=== PATIENT | female | born 1945 | race Caucasian/White ===

== ENCOUNTER 2018-07-21 19:57 | Outpatient (REF) | payer MEDICARE, OTHER, SELFPAY | END 2018-07-21 20:17 | LOC: LBN 19:57 | PROVIDERS: PCP Family Medicine | DX: L72.9 Follicular cyst of the skin and subcutaneous tissue, unspecified (principal) | CPT/HCPCS: 87070; 87205 ==

== ENCOUNTER 2021-07-05 01:32 | Outpatient (CLI) | payer MEDICARE, OTHER, SELFPAY ==
[2021-07-05 12:49] LABS: Abs Immature Grans 0.03 10^3/uL (0.0-0.06); Absolute Basophil Count 0.04 10^3/uL (0.0-0.2); Absolute Eosinophil Count 0.04 10^3/uL (0.0-0.7); Absolute Lymphocyte Count 1.17 10^3/uL (1.2-3.4); Absolute Monocyte Count 0.59 10^3/uL (0.1-0.8); Absolute Neutrophil Count 6.23 10^3/uL (1.2-6.7); Basophils % 0.5; Eosinophils % 0.5; HCT 37.8 % (36.0-46.0); HGB 12.9 g/dL (11.2-15.7); Immature Grans % 0.4; Lymphocytes % 14.4; MCH 29.5 pg (27.0-33.0); MCHC 34.1 % (32.0-36.0); MCV 87 fL (80-95); MPV 9.6 fL (8.0-11.0); Monocytes % 7.3; Neutrophils % 76.9; Platelet Count 344 10^3/uL (130-400); RBC 4.37 10^6/uL (3.93-5.22); RDW 11.9 % (11.7-14.6)
[2021-07-05 12:55] LABS: ALT 24 U/L (14-59); AST 17 U/L (15-37); Albumin 4.2 g/dL (3.4-5.0); Alkaline Phosphatase 99 U/L (46-116); BUN 26 mg/dL (7-18); Bilirubin, Total 0.6 mg/dL (0.2-1.0); CREATININE 0.9 mg/dL (0.55-1.02); Calcium 9.9 mg/dL (8.5-10.1); Chloride 89 mmol/L (98-107); Glucose 118 mg/dL (74-106); Potassium 4.6 mmol/L (3.5-5.1); Sodium 126 mmol/L (136-145); TSH (W/Ref FT4) 0.74 uIU/mL (0.36-3.74); Total Protein 7.5 g/dL (6.4-8.2)
[2021-07-08 11:03] LABS: Lyme Ab w Rflx to Lyme Confirm Negative (Negative)
[2021-07-08 23:36] LABS: Anaplasma phagocytophilum Negative (Negative); B. miyamotoi PCR Negative (Negative); Babesia divergens/MO-1 Negative (Negative); Babesia duncani Negative (Negative); Babesia microti Negative (Negative); Ehrlichia chaffeensis Negative (Negative); Ehrlichia ewingii/canis Negative (Negative); Ehrlichia muris eauclairensis Negative (Negative)
== END 2021-07-05 01:33 | disposition home or self-care (01) ==
LOC: LOS 01:32
PROVIDERS: Visit Provider Physician Assistant
DX: R53.83 Other fatigue (principal); E87.1 Hypo-osmolality and hyponatremia; R19.7 Diarrhea, unspecified; Z11.8 Encounter for screening for other infectious and parasitic diseases
CPT/HCPCS: 36415; 80053; 87798; 84443; 85025; 86618

== ENCOUNTER 2021-07-12 02:09 | Outpatient (CLI) | payer MEDICARE, OTHER, SELFPAY ==
[2021-07-12 13:17] LABS: Sodium 130 mmol/L (136-145)
== END 2021-07-12 02:10 | disposition home or self-care (01) ==
LOC: LOS 02:09
PROVIDERS: Visit Provider Nurse Practitioner Family
DX: E87.1 Hypo-osmolality and hyponatremia (principal)
CPT/HCPCS: 36415; 84295

== ENCOUNTER 2021-11-03 21:32 | Observation (INO) | payer MEDICARE, OTHER, SELFPAY ==
[2021-11-03] VITALS (41 sets, daily range): BP systolic 151–193; BP diastolic 68–97; PULSE 64–82; RESP 8–25; TEMP 37.1; O2SAT 91–99
--- NOTE | 2021-11-03 21:15 | DI.CT_ITS ---
Exam(s) CT BRAIN NECK CTA EXAM: CT BRAIN NECK CTA CLINICAL HISTORY: stroke symptoms, right sided weakness. TECHNIQUE: Imaging Protocol: Axial CT angiography was performed with multi-slice acquisition and mu lti-planar and/or 3D reconstructions. CONTRAST MATERIAL: Intravenous: Omnipaque 350 Contrast volume:85 mL. 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 The right subclavian artery arises as the final distal-most branch off of the thoracic arch (instead of rising off of the brachiocephalic trunk). It is seems the right-side bypassing between the poste rior wall of the esophagus and anterior wall of thoracic vertebral body. This leaves the right commo n carotid artery to originate as the 1st independent vessel off the aortic arch. Anterior circulation: Both common carotid arteries ascend with normal luminal diameters. No significant stenosis evident a t the carotid bifurcations and proximal internal carotid arteries. Internal carotid arteries are pat ent in the upper neck and skull base-carotid canals. Posterior circulation: The left vertebral artery originates in conventional fashion off of the left subclavian artery and is dominant, ascending with a luminal diameter of 0.5 millimeters in the foramen transverse area and wi thout evidence of intraluminal thrombus nor dissection and is the main contributor to formation of th e basilar artery. The right vertebral artery is a smaller caliber vessel and originates off of the aberrant right subcl leonardo artery to the right of the midline. The right vertebral artery ascends with a luminal diameter of 2 millimeters and terminates at the skull base as the posterior inferior cerebellar artery. It d oes not contribute to the formation of the basilar artery. CTA Brain W: Anterior circulation: Both internal carotid arteries are patent in the skull base and cavernous sinuses. Supraclinoid aspe cts are patent. A1 segments are patent as are the anterior cerebral arteries and there is no aneurys m at the level of the anterior communicating artery. Middle cerebral arteries appear patent. Posterior circulation: The basilar artery is formed by the dominant left vertebral artery and ascends with a luminal diamete r of 2 millimeters. No significant stenosis in this vessel evident. Distally it gives off superior cerebellar arteries. Above this level it terminates as right posterior XXXX cerebral artery. The le ft posterior cerebral artery is fed by posterior communicating artery on the left side of the [place]. There is a significant stenosis in the P1 segment of the right posterior cerebral artery. Similar finding not seen in the left posterior cerebral artery. There is no aneurysm of the tip of the basilar artery nor elsewhere in the [id number]-Qafhae. CT BRAIN: There is no evidence of intracranial hemorrhage, mass effect, or shift of midline structures. There are no extra-axial fluid collections. Ventricles are not enlarged or shifted. There are no ring enh ancing lesions in the brain and no abnormal meningeal enhancement. IMPRESSION: 1. No evidence of significant stenosis in the carotid arteries in the neck. 2. The left vertebral artery is dominant and forms the basilar artery. The right vertebral artery a rises off of the aberrant right subclavian artery and is a developmentally thinner vessel which termi nates as the right posterior inferior cerebellar artery at the skull base level. It does not contrib martin to the formation of the basilar artery. 3. There is a significant focal stenosis in the P1 segment of the right posterior cerebral artery. The left posterior cerebral artery is predominately formed by posterior communicating artery on the l eft side of the pyfoiz-la-Qhctht. No acute intracranial findings. If clinically indicated follow-up MRI with diffusion imaging can be performed. First read by [facility] RADIATION DOSE DELIVERED: 1,872.73mGy.cm Total DLP DATA REPOSITORY: All CT scans at this facility are submitted to the National Radiology Data Registry (NRDR) Dose Index Registry (DIR) with the [employer] (ACR). RADIATION OPTIMIZATION: All CT scans at this facility use at least one of these dose optimization te chniques: automated exposure control; mA and/or kV adjustment per patient size (includes targeted exa ms where dose is matched to clinical indication); or iterative reconstruction.
--- NOTE | 2021-11-03 21:15 | RT.EKG_ITS ---
APPROVED REPORT Exam: Resting ECG Reason for Exam: cva Patient Location: E HR:74 bpm ECG Measurements Heart Rate 74 AXIS OH 236 P 31 QRSd 118 QRS -19 QT 381 T 74 QTc 424 Conclusion Sinus rhythm...normal P axis, V-rate 60- 99 Prolonged OH interval...OH >220, V-rate 50- 90 Nonspecific intraventricular conduction delay...QRSd >115mS, not LBBB/RBBB Anteroseptal infarct, old...Q >40mS, V1-V2 Nonspecific T abnormalities, lateral leads...T <-0.10mV, I aVL V5 V6
[2021-11-03] MEDS: Omnipaque 350 MG/ML 100 ML BTL IJ (22:01)
[2021-11-03 22:09] LABS: Source Nasal/Nares
[2021-11-03 22:11] LABS: Abs Immature Grans 0.02 10^3/uL (0.0-0.06); Absolute Basophil Count 0.04 10^3/uL (0.0-0.2); Absolute Eosinophil Count 0.13 10^3/uL (0.0-0.7); Absolute Lymphocyte Count 2.15 10^3/uL (1.2-3.4); Absolute Neutrophil Count 4.82 10^3/uL (1.2-6.7); Basophils % 0.5; Eosinophils % 1.7; HGB 11.1 g/dL (11.2-15.7); Immature Grans % 0.3; Lymphocytes % 27.4; MCH 29.9 pg (27.0-33.0); MCHC 33.6 % (32.0-36.0); MCV 89 fL (80-95); MPV 8.7 fL (8.0-11.0); Monocytes % 8.9; Neutrophils % 61.2; Platelet Count 298 10^3/uL (130-400); RBC 3.71 10^6/uL (3.93-5.22); RDW 12.1 % (11.7-14.6); RDW-SD 39.4 fL; WBC 7.86 10^3/uL (4.4-10.8)
--- NOTE | 2021-11-03 22:12 | DI.VRAD_ITS ---
PROCEDURE INFORMATION: Exam: CTA Head With Contrast, Arteriography Exam date and time: 11/03/2021 9:35 PM Age: 76 years old Clinical indication: Stroke-like symptoms; Speech disturbance; Right upper extremity and right lower extremity numbness/paresthesia; Additional info: Stroke symptoms, right side weakness TECHNIQUE: Imaging protocol: Computed tomographic angiography of the head with contrast. Exam focused on the arteries. 3D rendering (Not supervised by radiologist): MIP and/or 3D reconstructed images were created by the technologist. COMPARISON: No relevant prior studies available. FINDINGS: ANTERIOR CIRCULATION: Right internal carotid artery: Unremarkable. Intracranial segment is patent with no significant stenosis. No aneurysm. Right middle cerebral artery: Unremarkable. No occlusion or significant stenosis. No aneurysm. Right anterior cerebral artery: Unremarkable. No occlusion or significant stenosis. No aneurysm. Left internal carotid artery: Unremarkable. Intracranial segment is patent with no significant stenosis. No aneurysm. Left middle cerebral artery: Unremarkable. No occlusion or significant stenosis. No aneurysm. Left anterior cerebral artery: Unremarkable. No occlusion or significant stenosis. No aneurysm. POSTERIOR CIRCULATION: Right vertebral artery: Right vertebral artery ends in PICA. Left vertebral artery: The left vertebral artery continues as the basilar artery. Basilar artery: See Left vertebral artery finding. Right posterior cerebral artery: Mild stenosis of the P1 segment of right posterior cerebral artery. Left posterior cerebral artery: origin of left posterior cerebral artery. Brain: No definite mass, mass effect, or midline shift. Cerebral ventricles: No ventriculomegaly. Bones/joints: Unremarkable. No acute fracture. Soft tissues: Unremarkable. IMPRESSION: No acute abnormality. PROCEDURE INFORMATION: Exam: CTA Neck With Contrast Exam date and time: 11/03/2021 9:35 PM Age: 76 years old Clinical indication: Stroke-like symptoms; Speech disturbance; Right upper extremity and right lower extremity numbness/paresthesia; Additional info: Stroke symptoms, right side weakness TECHNIQUE: Imaging protocol: Computed tomographic angiography of the neck with contrast. 3D rendering (Not supervised by radiologist): MIP and/or 3D reconstructed images were created by the technologist. COMPARISON: No relevant prior studies available. FINDINGS: Right common carotid artery: No stenosis. No dissection or occlusion. Right internal carotid artery: No stenosis of the extracranial segment. No dissection or occlusion. Right external carotid artery: No occlusion or stenosis of the origin. Left common carotid artery: No stenosis. No dissection or occlusion. Left internal carotid artery: No stenosis of the extracranial segment. No dissection or occlusion. Left external carotid artery: No occlusion or stenosis of the origin. Right vertebral artery: No stenosis. No dissection or occlusion. Left vertebral artery: No stenosis. No dissection or occlusion. Right subclavian artery: Aberrant origin of right subclavian artery. Soft tissues: Normal. No significant soft tissue swelling. Bones/joints: No acute fracture. IMPRESSION: No stenosis or occlusion of neck arteries. REFERENCES: NASCET CRITERIA. The degree of stenosis in the cervical segment of the internal carotid artery is based on NASCET criteria. Normal is no stenosis. Mild is less than 50% stenosis. Moderate is 50-69% stenosis. Severe is 70% to 99% stenosis. Total occlusion is no detectable patent lumen. Dictated and Authenticated by: Neftali Yates MD. Ordering:SVETLANA Mane MD
--- NOTE | 2021-11-03 22:12 | ED.GENADUL_ITS ---
Discharge Plan Disposition Patient Disposition: [facility] INPATIENT Condition: Stable Discharge Details Chief Complaint: CVA/TIA Clinical Impression: TIA (transient ischemic attack), COVID Primary Care Provider: Doris Irby ED Provider: Alhaji Montoya Home Meds and New Rx's Prescriptions: No Action cholecalciferol (vitamin D3) 25 mcg (1,000 unit) capsule 25 mcg PO DAILY ascorbic acid (vitamin C) 500 mg tablet 500 mg PO DAILY cetirizine [All Day Allergy (cetirizine)] 10 mg tablet 10 mg PO DAILY Qty: 30 1RF hydrochlorothiazide 25 mg tablet 25 mg PO QAM Qty: 90 3RF Medical Decision Making 76 yo female with hx of htn and hld, no prior cardiac history or cva comes in with chief complaint of right sided weakness. She was feeling well most of the day and went to sit on the bathroom. She then tried to stand up and noticed her right leg was weak and she couldn't lift her arm up as it kept drifting down. she also noted she was having word findings difficulty. This started at 830pm and family called ems. On arrival she is caox4, clear speech, no drift on exam, normal sensation, CN II-XII intact, no facial assymetry. she states her symptoms are better and she doesn't note any weakness now. NIH of 0. Her history is concerning for tia and given symptoms are improving/resolved doubt cva but will proceed with ct and cta, and also obtain cbc, cmp, coagulation studies and troponin/ekg. ct and blood work unremarkable. She remains with nih of 0. Given severity of symptoms at presentation will discuss with hospitalist about admission pt incidentally found to be positive for covid, no oxygen requirements and has no respiratory symptoms. Differential Diagnosis Differential Diagnosis: tia, cva, ich Imaging Data Radiologic Study: Attestation: I personally reviewed and interpreted this imaging study as follows: Imaging: CT Scan Radiologist's impression: negative ct/cta of the head/neck Lab Data Lab results reviewed: Yes I reviewed the patient's lab results. ECG Data Attestation: I personally reviewed and interpreted this ECG (s) as follows: Prior ECG tracings: not available for review Interpretation: sinus rhythm, rate of 74, no acute st t wave ischemic findings HPI General Mode of arrival: EMS . Date/Time Provider Initiated Documentation: 11/03/21 22:11 . Limitations to Documentation: no limitations . Information obtained by: patient . History of Present Illness 76 year old F presents to the emergency department with the chief complaint of right sided weakness, described as moderate, Patient started experiencing this hour(s) (1.5) and it has been now resolved. No relieving factors improve symptom(s), No exacerbating factors reported . Patient did receive the following treatments prior to arrival, none Related Data Home Medications Medication Instructions Recorded Confirmed ascorbic acid (vitamin C) 500 mg 500 mg PO DAILY 06/18/21 11/03/21 tablet cetirizine 10 mg tablet (All Day 10 mg PO DAILY #30 tabs 06/18/21 11/03/21 Allergy (cetirizine)) cholecalciferol (vitamin D3) 25 25 mcg PO DAILY 06/18/21 11/03/21 mcg (1,000 unit) capsule hydrochlorothiazide 25 mg tablet 25 mg PO QAM #90 tabs 10/14/21 11/03/21 Previous Rx's Medication Instructions Recorded cetirizine 10 mg tablet (All Day 10 mg PO DAILY #30 tabs 06/18/21 Allergy (cetirizine)) hydrochlorothiazide 25 mg tablet 25 mg PO QAM #90 tabs 10/14/21 Allergies Allergy/AdvReac Type Severity Reaction Status Date / Time clindamycin Allergy Intermediate GI Upset Verified 07/18/21 08:21 amoxicillin Allergy Itchy palms Verified 07/18/21 08:21 Sulfa (Sulfonamide Allergy Unverified 11/03/21 22:10 Antibiotics) General Stated Complaint: CVA/TIA YANICK: 1 Review of Systems All systems reviewed & are unremarkable except as noted in HPI and below Constitutional Constitutional: Denies chills and Denies fever(s) Cardiovascular Cardiovascular: Denies chest pain and Denies dyspnea Respiratory Respiratory: Denies cough and Denies dyspnea Gastrointestinal Gastrointestinal: Denies abdominal pain, Denies nausea and Denies vomiting Integumentary/Breasts Skin/Breast: Denies rash PFSH All Active Problems (Updated 11/03/21 @ 23:25 by Alhaji Montoya MD) TIA (transient ischemic attack) (Acute) COVID (Acute) Environmental allergies (Acute) Overweight (BMI 25.0-29.9) (Chronic) Hyperlipidemia (Chronic) Essential hypertension (Acute 10/03/10) Medical History Abscess of back Cyst of skin Diarrhea Primary malignant neoplasm of cervix H/O carcinoma in situ Surgical History History of excision of mass History of hysterectomy Social History Smoking/Tobacco Use Status: Never Smoking risk assessment performed?: Yes Alcohol Intake: never Substance use type: does not use Do you feel safe at home: No Do you feel safe in your relationship?: No Exam Const General: no acute distress Orientation: alert HENMT Head: normal to inspection Ears: external ears normal General nose exam: external nose normal Mouth: moist mucous membranes Eyes General: appearance normal, both eyes and all related structures Neck Neck: normal visual inspection Resp Effort & Inspection: normal respiratory effort and able to speak in complete sentences Cardio Rate: regular rate Skin General skin exam: no rashes or lesions noted Neuro General: patient alert and patient oriented x3 Extrem General: normal to inspection Psych Mental Status: mental status grossly normal Course Vital Signs Vital signs: Vital Signs Temperature 37.1 C 11/03/21 21:38 Pulse 76 11/03/21 21:38 Respiratory Rate 18 11/03/21 21:38 Blood Pressure 193/76 H 11/03/21 21:38 Pulse Oximetry 99 11/03/21 21:38 Temperature 37.1 C 11/03/21 21:38 Temperature Source Temporal Artery Scan 11/03/21 21:38 Pulse 76 11/03/21 21:38 Respiratory Rate 18 11/03/21 22:07 Respiratory Effort Non-Labored 11/03/21 22:07 Respiratory Depth Normal 11/03/21 22:07 Respiratory Pattern Normal 11/03/21 22:07 Blood Pressure 193/76 H 11/03/21 21:38 Blood Pressure Position Supine 11/03/21 21:38 Pulse Oximetry 99 11/03/21 21:38 Oxygen Delivery Method Room Air 11/03/21 21:38 Oxygen Flow Rate 0 11/03/21 21:38 Pain Level 0 11/03/21 21:38 Lab/Test Results Lab/Test Results: Laboratory Tests Range/Units 11/03/21 22:00 COVID-19 Source Nasal/Nares
[2021-11-03 22:25] LABS: INR 1.1 (0.9-1.1); Prothrombin Time 10.9 sec (9.3-11.0)
[2021-11-03 22:31] LABS: ALT 15 U/L (14-59); AST 11 U/L (15-37); Albumin 3.7 g/dL (3.4-5.0); Alkaline Phosphatase 91 U/L (46-116); BUN 25 mg/dL (7-18); Bilirubin, Total 0.3 mg/dL (0.2-1.0); Calcium 9.5 mg/dL (8.5-10.1); Chloride 94 mmol/L (98-107); Estimated GFR 57.66 (mL/min/1.73m2); Glucose 126 mg/dL (74-106); Magnesium 1.9 mg/dL (1.8-2.4); Potassium 3.6 mmol/L (3.5-5.1); Sodium 130 mmol/L (136-145); Total Protein 7.3 g/dL (6.4-8.2); Troponin I < 50 ng/L (<or=60)
[2021-11-03 22:50] LABS: Bilirubin Negative (Negative); Blood Trace-lysed (Negative); Clarity Clear (Clear); Glucose Negative (Negative); Ketones Negative (Negative); Leukocyte Esterase Small (Negative); Nitrite Negative (Negative); Specific Gravity 1.015 (1.005-1.025); Urobilinogen 0.2 EU/dL (Up TO 0.2)
[2021-11-03 22:56] LABS: COVID-19 PCR POSITIVE (Negative)
[2021-11-03 23:07] LABS: Bacteria Few HPF (Negative); C & S Indicated? Yes; Casts Negative LPF (Negative); Crystals Negative HPF (Negative); Epithelial Cells Rare HPF (Negative); Mucus Negative (Negative)
[2021-11-03] MEDS: Aspirin 325 MG TAB PO (23:27)
--- NOTE | 2021-11-03 23:47 | W.PM.HP.N ---
Date of service: 11/03/21 Time of Service: 23:47 Assessment and Plan Assessment and plan (1) TIA (transient ischemic attack): Status: Acute Assessment and plan: TIA. No arrythmia to suggest cardioembolic source, and gradual onset and recovery more suggestive of atherothrombotic etiology. Conceivable that COVID hypercoaguable diathesis playing a role but this is probably unknowable. In any case would advise continue ASA, begin statin and check MRI in AM. Will allow a degree of permissive hypertension, targeting roughly 160/90 for now. History of Present Illness History of Present Illness Chief Complaint: right sided weakness Narrative: 76 female with h/o HTN and HLD -- here with fairly sudden onset right sided weakness approx 3 hours ago, as well as either some slurring of speech or difficulty in word finding, cannot quite distinguish the two instances, Slowly progressed and then slowly resolved -- at this point is back to baseline. In ER findings of note for normal exam and negative head/neck CT and CTA, along with negative telemetry. Received 325 ASA during my visit. COVID is positive. I was asked to evaluate for admission. At this point patient states she feels entirely well. Review of Systems Narrative: per HPI PFSH All Active Problems TIA (transient ischemic attack) (Acute) COVID (Acute) Environmental allergies (Acute) Overweight (BMI 25.0-29.9) (Chronic) Hyperlipidemia (Chronic) Essential hypertension (Acute 10/03/10) Medical History Abscess of back Cyst of skin Diarrhea Primary malignant neoplasm of cervix H/O carcinoma in situ Surgical History History of excision of mass History of hysterectomy Social History Smoking/Tobacco Use Status: Never Smoking risk assessment performed?: Yes Alcohol Intake: never Substance use type: does not use Do you feel safe at home: No Do you feel safe in your relationship?: No Meds Allergies and Home Medications Allergies Allergy/AdvReac Type Severity Reaction Status Date / Time clindamycin Allergy Intermediate GI Upset Verified 07/18/21 08:21 amoxicillin Allergy Itchy palms Verified 07/18/21 08:21 Sulfa (Sulfonamide Allergy Unverified 11/03/21 22:10 Antibiotics) Home Medications Medication Instructions Recorded Confirmed Type ascorbic acid (vitamin C) 500 mg 500 mg PO DAILY 06/18/21 11/03/21 History tablet cetirizine 10 mg tablet (All Day 10 mg PO DAILY #30 tabs 06/18/21 11/03/21 Rx Allergy (cetirizine)) cholecalciferol (vitamin D3) 25 25 mcg PO DAILY 06/18/21 11/03/21 History mcg (1,000 unit) capsule hydrochlorothiazide 25 mg tablet 25 mg PO QAM #90 tabs 10/14/21 11/03/21 Rx Exam Narrative Exam Narrative: BP 147-193/74-76, 76, 37.1,18, 99% RA. HEENT atraumatic; neck supple w/o bruit; lungs clear; heart RRR; abdomen soft and NT; extremities w/o edema; neuro Ox3, lucid, no aphasia, motor 5/5, toes downgoing Results Labs Result diagrams: 11/03/21 22:05 11/03/21 22:05 Labs: Laboratory Results - last 24 hr 11/03/21 11/03/21 11/03/21 22:00 22:05 22:05 WBC 7.86 RBC 3.71 L Hgb 11.1 L Hct 33.0 L MCV 89 MCH 29.9 MCHC 33.6 RDW 12.1 Plt Count 298 MPV 8.7 Immature Gran % 0.3 Neutrophils % 61.2 Lymphocytes % 27.4 Monocytes % 8.9 Eosinophils % 1.7 Basophils % 0.5 Nucleated RBC % 0.0 Absolute Neutrophils 4.82 Absolute Lymphocytes 2.15 Absolute Monocytes 0.70 Absolute Eosinophils 0.13 Absolute Basophils 0.04 PT INR APTT Sodium 130 L Potassium 3.6 Chloride 94 L Carbon Dioxide 30.0 Anion Gap 6.0 BUN 25 H Creatinine 1.0 Est GFR (CKD-EPI 2020) 57.66 Glucose 126 H Calcium 9.5 Magnesium 1.9 Total Bilirubin 0.3 AST 11 L ALT 15 Alkaline Phosphatase 91 Troponin I < 50 Total Protein 7.3 Albumin 3.7 Urine Color Urine Clarity Urine pH Ur Specific [place] Urine Protein Urine Ketones Urine Blood Urine Nitrite Urine Bilirubin Urine Urobilinogen Ur Leukocyte Esterase Urine RBC Urine WBC Ur Epithelial Cells Urine Crystals Urine Bacteria Urine Casts Urine Mucus Ur Culture Indicated? Urine Glucose COVID-19 Source Nasal/Nares SARS-CoV-2 (PCR) POSITIVE A* 11/03/21 11/03/21 22:05 22:40 WBC RBC Hgb Hct MCV MCH MCHC RDW Plt Count MPV Immature Gran % Neutrophils % Lymphocytes % Monocytes % Eosinophils % Basophils % Nucleated RBC % Absolute Neutrophils Absolute Lymphocytes Absolute Monocytes Absolute Eosinophils Absolute Basophils PT 10.9 INR 1.1 APTT 25.0 Sodium Potassium Chloride Carbon Dioxide Anion Gap BUN Creatinine Est GFR (CKD-EPI 2020) Glucose Calcium Magnesium Total Bilirubin AST ALT Alkaline Phosphatase Troponin I Total Protein Albumin Urine Color Yellow Urine Clarity Clear Urine pH 7.0 Ur Specific [place] 1.015 Urine Protein Negative Urine Ketones Negative Urine Blood Trace-lysed H Urine Nitrite Negative Urine Bilirubin Negative Urine Urobilinogen 0.2 Ur Leukocyte Esterase Small H Urine RBC 3-5 H Urine WBC 5-10 Ur Epithelial Cells Rare Urine Crystals Negative Urine Bacteria Few Urine Casts Negative Urine Mucus Negative Ur Culture Indicated? Yes Urine Glucose Negative COVID-19 Source SARS-CoV-2 (PCR) Last Vital Signs Temp 37.1 C 11/03/21 21:38 Pulse 76 11/03/21 21:38 Resp 18 11/03/21 22:07 BP 193/76 H 11/03/21 21:38 Pulse Ox 99 11/03/21 21:38
[2021-11-04] VITALS (48 sets, daily range): BP systolic 146–161; BP diastolic 60–82; PULSE 57–71; RESP 9–25; TEMP 36.4–36.9; O2SAT 94–99
--- NOTE | 2021-11-04 | DI.MRI_ITS ---
Exam(s) MR BRAIN WO EXAM: MR BRAIN WO CLINICAL HISTORY: TIA, right hemiparesis TECHNIQUE: Multiplanar multisequence MRI of the brain was performed. COMPARISON: CT CT BRAIN NECK CTA from 11/03/2021 FINDINGS: CEREBRAL PARENCHYMA: There is no evidence of intracranial hemorrhage, mass effect, or shift of midline structures. There are no extra-axial fluid collections. Ventricles are not enlarged or shifted. There is no significant focal signal abnormality in the cerebellar hemispheres nor within the branden, m idbrain, and thalami. There is no prominent abnormal signal in the immediate periventricular white matter. There is, howev er, a small 5 x 5 millimeter focus of signal abnormality in the left anterior lobe white matter force ps, nonhemorrhagic and not exhibiting restricted diffusion on DWI. There is no significant focal signal abnormality evident on diffusion imaging to suggest acute ischem ic event. SWI: No evidence of microhemorrhages PITUITARY GLAND: No mass nor parasellar abnormality. No obvious abnormality in the cavernous sinuses. FLOW VOIDS: The expected flow void are noted. No evidence of obvious aneurysm nor obvious vascular ma lformation. See CT a report PARANASAL SINUSES: The visualized paranasal sinuses appear unremarkable. No obvious finding ORBITS: No obvious findings. IMPRESSION: Mild periventricular white matter foci of signal abnormality, the largest of these measuring 5 millim eters and located in the your lobe white matter forceps. This does not exhibit restricted diffusion to suggest that is an acute lacunar infarct. No evidence of hemorrhage at this level nor elsewhere i n the brain. DATA REPOSITORY:
[2021-11-04 00:44] LABS: Troponin I < 50 ng/L (<or=60)
[2021-11-04] MEDS: Normal Saline Flush 10 ML SYR IVP (02:23)
[2021-11-04 05:53] LABS: HCT 32.6 % (36.0-46.0); HGB 11.4 g/dL (11.2-15.7)
[2021-11-04] MEDS: Aspirin 81 MG CHEW PO (09:19)
[2021-11-04] MEDS: Cetirizine 10 MG TAB PO (09:19)
[2021-11-04] MEDS: Atorvastatin 20 MG TAB PO (09:19)
[2021-11-04] MEDS: hydroCHLOROthiazide 25 MG TAB PO (09:19)
[2021-11-04] MEDS: LORazepam 1 MG TAB 0.5 MG PO (10:49)
--- NOTE | 2021-11-04 14:21 | DSE_ITS ---
Date of service: 11/04/21 Time of Service: 14:21 DS: Diagnosis Discharge Diagnosis (1) TIA (transient ischemic attack): Status: Acute Discharge Plan Disposition Patient Disposition: HOME Condition: Good Discharge Details Reason For Visit: TIA Admit Date/Time: 11/03/21 23:58 Admit Provider: Ernesto Marin Attending Provider: Ernesto Marin Primary Care Provider: Doris Irby Hospital Course Hospital Course: 76 female with h/o HTN and HLD -- here with fairly sudden onset right sided weakness approx 3 hours prior to arrival. She also endorsed either some slurring of speech or difficulty in word finding; she could not quite distinguish which/or both. Slowly progressed and then slowly resolved. In ER findings of note for normal exam and negative head/neck CT and CTA, along with negative telemetry. Received 325. COVID was incidentally positive. An MRI brain showed: Mild periventricular white matter foci of signal abnormality, the largest of these measuring 5 x 5 mm in the left anterior lobe white matter.? This does not exhibit restricted diffusion to suggest that is an acute lacunar infarct.? No evidence of hemorrhage at this level nor elsewhere in the brain. She continued to show no motor deficits, speech or swallowing deficits, paresthesias. She will continue a daily aspirin and atorvastatin 40mg daily. PCP follow up in 1-2 weeks. Home Meds and New Rx's Prescriptions: New aspirin [Children's Aspirin] 81 mg Tablet,Chewable 81 mg PO DAILY Qty: 0 0RF atorvastatin 40 mg tablet 40 mg PO DAILY Qty: 30 0RF Continued cholecalciferol (vitamin D3) 25 mcg (1,000 unit) capsule 25 mcg PO DAILY ascorbic acid (vitamin C) 500 mg tablet 500 mg PO DAILY cetirizine [All Day Allergy (cetirizine)] 10 mg tablet 10 mg PO DAILY Qty: 30 1RF hydrochlorothiazide 25 mg tablet 25 mg PO QAM Qty: 90 3RF Discharge Instructions Instructions: Transient Ischemic Attack (DC) Activity:: Activity as Tolerated Equipment/Supplies:: No Equipment Needed Diet:: Heart Healthy Discharge Orders Discharge Orders: Discharge Order (Routine); Ordered 11/04/21 Ordered By: Guero Pretty DS: Summary Time Spent with Patient providing and/or coordinating discharge services: Greater than 30 minutes Status at Discharge Functional status at discharge: independent ambulation Overall status at discharge: patient is back to baseline Mental Status: mental status grossly normal Speech and Movement: speech and movement normal Mood: congruent mood Affect: normal affect Exam Const General: cooperative and no acute distress Nutritional Appearance: overweight Orientation: alert and oriented x3 Eyes General: appearance normal, both eyes and all related structures Sclera: sclerae normal Resp Effort & Inspection: normal respiratory effort Auscultation: clear to auscultation bilaterally Cardio Rate: regular rate Rhythm: regular rhythm Heart Sounds: S1 normal and S2 normal GI Palpation: soft and nontender Auscultation: normal bowel sounds Skin General skin exam: no rashes or lesions noted Neuro General: no focal motor deficits Cranial Nerves: facial strength normal Cognition: normal cognition Speech: speech normal Extrem General: no pedal edema and no calf tenderness Psych Mental Status: mental status grossly normal Speech and Movement: speech and movement normal Mood: congruent mood Affect: normal affect DS: Data Vitals/I&O Vitals and I&O: Vital Signs Temperature 36.4 C L 11/04/21 05:27 Temperature Source Temporal Artery Scan 11/04/21 05:27 Pulse 63 11/04/21 12:11 Pulse Rhythm Regular 11/04/21 10:00 Pulse 64 11/04/21 12:11 Respiratory Rate 11 L 11/04/21 12:11 Respiratory Effort Non-Labored 11/04/21 10:00 Respiratory Depth Normal 11/04/21 10:00 Respiratory Pattern Normal 11/04/21 10:00 Blood Pressure 161/73 H 11/04/21 12:11 Blood Pressure Mean 94 11/04/21 12:11 Blood Pressure Position Sitting 11/04/21 00:50 Pulse Oximetry 99 11/04/21 12:11 Oxygen Delivery Method Room Air 11/04/21 00:50 Oxygen Flow Rate 0 11/04/21 00:50 Pain Level 0 11/04/21 05:27 Intake & Output 11/03/21 11/04/21 11/04/21 23:59 11:59 23:59 Intake Total 560 / 560 Output Total 500 / 500 Balance 60 / 60 Weight 77.7 kg 77.7 kg Intake: Oral 560 / 560 Output: Urine 500 / 500 Other: Urine Color Yellow Urine Appearance Clear Urine Odor None Comment s/p hysterectomy Stool Size Small Stool Characteristics Formed Hard Voiding Methods Bedside Commode Data Completed and Pending Labs on day of discharge: Labs from last 24 hours 11/04/21 11/04/21 11/03/21 05:17 00:20 22:40 WBC RBC Hgb 11.4 Hct 32.6 L MCV MCH MCHC RDW Plt Count MPV Immature Gran % Neutrophils % Lymphocytes % Monocytes % Eosinophils % Basophils % Nucleated RBC % Absolute Neutrophils Absolute Lymphocytes Absolute Monocytes Absolute Eosinophils Absolute Basophils PT INR APTT Sodium Potassium Chloride Carbon Dioxide Anion Gap BUN Creatinine Est GFR (CKD-EPI 2020) Glucose Calcium Magnesium Total Bilirubin AST ALT Alkaline Phosphatase Troponin I < 50 Total Protein Albumin Urine Color Yellow Urine Clarity Clear Urine pH 7.0 Ur Specific [place] 1.015 Urine Protein Negative Urine Ketones Negative Urine Blood Trace-lysed H Urine Nitrite Negative Urine Bilirubin Negative Urine Urobilinogen 0.2 Ur Leukocyte Esterase Small H Urine RBC 3-5 H Urine WBC 5-10 Ur Epithelial Cells Rare Urine Crystals Negative Urine Bacteria Few Urine Casts Negative Urine Mucus Negative Ur Culture Indicated? Yes Urine Glucose Negative COVID-19 Source SARS-CoV-2 (PCR) 11/03/21 11/03/21 11/03/21 22:05 22:05 22:05 WBC 7.86 RBC 3.71 L Hgb 11.1 L Hct 33.0 L MCV 89 MCH 29.9 MCHC 33.6 RDW 12.1 Plt Count 298 MPV 8.7 Immature Gran % 0.3 Neutrophils % 61.2 Lymphocytes % 27.4 Monocytes % 8.9 Eosinophils % 1.7 Basophils % 0.5 Nucleated RBC % 0.0 Absolute Neutrophils 4.82 Absolute Lymphocytes 2.15 Absolute Monocytes 0.70 Absolute Eosinophils 0.13 Absolute Basophils 0.04 PT 10.9 INR 1.1 APTT 25.0 Sodium 130 L Potassium 3.6 Chloride 94 L Carbon Dioxide 30.0 Anion Gap 6.0 BUN 25 H Creatinine 1.0 Est GFR (CKD-EPI 2020) 57.66 Glucose 126 H Calcium 9.5 Magnesium 1.9 Total Bilirubin 0.3 AST 11 L ALT 15 Alkaline Phosphatase 91 Troponin I < 50 Total Protein 7.3 Albumin 3.7 Urine Color Urine Clarity Urine pH Ur Specific [place] Urine Protein Urine Ketones Urine Blood Urine Nitrite Urine Bilirubin Urine Urobilinogen Ur Leukocyte Esterase Urine RBC Urine WBC Ur Epithelial Cells Urine Crystals Urine Bacteria Urine Casts Urine Mucus Ur Culture Indicated? Urine Glucose COVID-19 Source SARS-CoV-2 (PCR) 11/03/21 22:00 WBC RBC Hgb Hct MCV MCH MCHC RDW Plt Count MPV Immature Gran % Neutrophils % Lymphocytes % Monocytes % Eosinophils % Basophils % Nucleated RBC % Absolute Neutrophils Absolute Lymphocytes Absolute Monocytes Absolute Eosinophils Absolute Basophils PT INR APTT Sodium Potassium Chloride Carbon Dioxide Anion Gap BUN Creatinine Est GFR (CKD-EPI 2020) Glucose Calcium Magnesium Total Bilirubin AST ALT Alkaline Phosphatase Troponin I Total Protein Albumin Urine Color Urine Clarity Urine pH Ur Specific [place] Urine Protein Urine Ketones Urine Blood Urine Nitrite Urine Bilirubin Urine Urobilinogen Ur Leukocyte Esterase Urine RBC Urine WBC Ur Epithelial Cells Urine Crystals Urine Bacteria Urine Casts Urine Mucus Ur Culture Indicated? 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
== END 2021-11-04 16:30 | disposition home or self-care (01) ==
LOC: ER 11-04 00:18 → ICU 11-04 00:43
PROVIDERS: Admitting Provider General Practice; Emergency Provider Emergency Medicine; Visit Provider General Practice
DX: G45.9 Transient cerebral ischemic attack, unspecified (principal); I10 Essential (primary) hypertension; E78.5 Hyperlipidemia, unspecified; R47.81 Slurred speech; G81.91 Hemiplegia, unspecified affecting right dominant side; U07.1 COVID-19; Z79.899 Other long term (current) drug therapy; R94.31 Abnormal electrocardiogram [ECG] [EKG]; E66.3 Overweight; Z68.29 Body mass index [BMI] 29.0-29.9, adult
CPT/HCPCS: 36415; 70496; 70498; 80053; 87635; 93005; 96374; 99284; 99285; Q0222; 70551; 81003; 81015; 83735; 84484; 85014; 85018; 85025; 85610; 85730; 87086; 93010; 99217; 99219; G0378; J3490

== ENCOUNTER 2021-11-11 18:09 | Outpatient (REF) | payer MEDICARE, OTHER, SELFPAY ==
[2021-11-11 13:05] LABS: Bilirubin Negative (Negative); Blood Trace-intact (Negative); Clarity Clear (Clear); Glucose Negative (Negative); Ketones Negative (Negative); Leukocyte Esterase Negative (Negative); Nitrite Negative (Negative); Specific Gravity 1.015 (1.005-1.025)
[2021-11-11 13:10] LABS: Bacteria Negative HPF (Negative); C & S Indicated? No; Casts Negative LPF (Negative); Crystals Negative HPF (Negative); Epithelial Cells Negative HPF (Negative); Mucus Negative (Negative); WBC 0-2 HPF (0-5)
== END 2021-11-11 18:10 | disposition home or self-care (01) ==
LOC: LBN 18:09
PROVIDERS: Visit Provider Nurse Practitioner Family
DX: N39.0 Urinary tract infection, site not specified (principal)
CPT/HCPCS: 81003; 81015

== ENCOUNTER 2021-11-13 03:33 | Outpatient (CLI) | payer MEDICARE, OTHER, SELFPAY ==
[2021-11-13 12:47] LABS: ALT 21 U/L (14-59); AST 15 U/L (15-37); Albumin 4.1 g/dL (3.4-5.0); Alkaline Phosphatase 91 U/L (46-116); BUN 17 mg/dL (7-18); Bilirubin, Total 0.7 mg/dL (0.2-1.0); CREATININE 0.8 mg/dL (0.55-1.02); Calcium 10.2 mg/dL (8.5-10.1); Calculated LDL 75 mg/dL (<100); Chloride 88 mmol/L (98-107); Cholesterol 163 mg/dL (<200); Estimated GFR 75.37 (mL/min/1.73m2); Glucose 116 mg/dL (74-106); HDL Cholesterol 79 mg/dL (40-60); Potassium 4.2 mmol/L (3.5-5.1); Total Protein 7.8 g/dL (6.4-8.2); Triglyceride 46 mg/dL (<150)
[2021-11-13 12:56] LABS: Sodium 123 mmol/L (136-145)
[2021-11-13 12:58] LABS: Hemoglobin A1C 6.1 % (<5.7)
== END 2021-11-13 03:34 | disposition home or self-care (01) ==
LOC: LOS 03:33
DX: I10 Essential (primary) hypertension (principal); R73.01 Impaired fasting glucose
CPT/HCPCS: 36415; 80053; 80061; 83036

== ENCOUNTER 2021-11-18 02:39 | Outpatient (CLI) | payer MEDICARE, OTHER, SELFPAY ==
[2021-11-18 12:34] LABS: Anion Gap 5.3 mmol/L (3-11); CO2 31.7 mmol/L (21.0-32.0); Chloride 96 mmol/L (98-107); Potassium 4.7 mmol/L (3.5-5.1); Sodium 133 mmol/L (136-145)
== END 2021-11-18 02:40 | disposition home or self-care (01) ==
LOC: LOS 02:39
PROVIDERS: Visit Provider Family Medicine
DX: E87.1 Hypo-osmolality and hyponatremia (principal)
CPT/HCPCS: 36415; 80051; 84132

== ENCOUNTER 2021-12-03 02:57 | Outpatient (CLI) | payer MEDICARE, OTHER, SELFPAY ==
[2021-12-03 12:48] LABS: Anion Gap 5.6 mmol/L (3-11); BUN 24 mg/dL (7-18); CO2 31.4 mmol/L (21.0-32.0); CREATININE 0.9 mg/dL (0.55-1.02); Calcium 10.4 mg/dL (8.5-10.1); Chloride 100 mmol/L (98-107); Estimated GFR 65.44 (mL/min/1.73m2); Glucose 117 mg/dL (74-106); Potassium 4.1 mmol/L (3.5-5.1); Sodium 137 mmol/L (136-145)
== END 2021-12-03 02:58 | disposition home or self-care (01) ==
LOC: LOS 02:57
PROVIDERS: Visit Provider Nurse Practitioner Family
DX: E87.1 Hypo-osmolality and hyponatremia (principal)
CPT/HCPCS: 36415; 80048

== ENCOUNTER 2022-01-15 02:40 | Outpatient (CLI) | payer MEDICARE, OTHER, SELFPAY ==
[2022-01-15 12:26] LABS: Anion Gap 3.2 mmol/L (3-11); BUN 26 mg/dL (7-18); CO2 31.8 mmol/L (21.0-32.0); Calcium 10.5 mg/dL (8.5-10.1); Chloride 102 mmol/L (98-107); Estimated GFR 57.66 (mL/min/1.73m2); Glucose 109 mg/dL (74-106); Potassium 4.3 mmol/L (3.5-5.1); Sodium 137 mmol/L (136-145)
== END 2022-01-15 02:41 | disposition home or self-care (01) ==
LOC: LOS 02:40
PROVIDERS: PCP Nurse Practitioner Family; Visit Provider Nurse Practitioner Family
DX: E87.1 Hypo-osmolality and hyponatremia (principal)
CPT/HCPCS: 36415; 80048

== ENCOUNTER 2022-04-03 01:57 | Outpatient (CLI) | payer MEDICARE, SELFPAY ==
[2022-04-03 12:34] LABS: Anion Gap 7.4 mmol/L (3-11); BUN 24 mg/dL (7-18); CO2 27.6 mmol/L (21.0-32.0); Calcium 10.3 mg/dL (8.5-10.1); Chloride 101 mmol/L (98-107); Estimated GFR 57.31 (mL/min/1.73m2); Glucose 111 mg/dL (74-106); Potassium 4.3 mmol/L (3.5-5.1); Sodium 136 mmol/L (136-145)
== END 2022-04-03 01:58 | disposition home or self-care (01) ==
LOC: LOS 01:57
PROVIDERS: PCP Nurse Practitioner Family; Visit Provider Nurse Practitioner Family
DX: I10 Essential (primary) hypertension (principal)
CPT/HCPCS: 36415; 80048

== ENCOUNTER → 2023-01-30 00:53 | Outpatient (CLI) | payer MEDICARE, SELFPAY ==
--- NOTE | 2023-01-30 10:15 | DI.US_ITS ---
Exam(s) US BREAST RT COMPLETE MG MAMMO DIAGNOSTIC BI EXAM: MG MAMMO DIAGNOSTIC BI AND COMPLETE RIGHT BREAST ULTRASOUND CLINICAL HISTORY: 2.5 cm 12:00 1 cm above areola new tender mass, N63.10. TECHNIQUE: BOTH CC MLO mammographic images OF BOTH BREAST were obtained with 3D tomosynthesis techni que and utilizing computer aided detection (CAD). Also performed additional spot compression view of the right breast. Complete right breast ultrasound was performed including all 4 quadrants as well as the axillary billy on. COMPARISON: Last mammogram was 2000 not available. This patient feels a right breast lump. FINDINGS: DIAGNOSTIC BILATERAL MAMMOGRAM: There is an ominous suspicious mass at 12 o'clock position of the right breast measuring approximatel y 5 x 4 cm, spiculated and highly suspicious for malignancy. There are no malignant-appearing microc alcifications in this region there are bilateral benign at micro and macro calcifications in both dee asts. No suspicious masses evident in the opposite-left breast. COMPLETE RIGHT BREAST ULTRASOUND: There is a malignant-appearing hypoechoic mass at 12 o'clock position which corresponds to the spicul ated mass on the mammogram. Highly suspicious for malignancy. No other similar appearing masses in the other quadrants. Scanning of the right axilla does not reveal abnormally enlarged lymph nodes. IMPRESSION: 1. There is a spiculated mass at 12 o'clock position of the right breast which is highly suspicious f or malignancy. This is evident on both mammogram and ultrasound. Biopsy recommended 2. No significant findings in the opposite-left breast. The patient was informed of the findings and follow-up recommendations by myself prior to leaving the department today. I also called the patient's provider with this report. BI-RADS Category 5 - Highly Suggestive of Malignancy: Biopsy recommended Breast Density - Category B - Scattered areas of fibroglandular density Breast density Category C or D implies that the patient has dense breast tissue. Dense breast tissue can make it harder to find cancer on a mammogram. Dense breast tissue is also associated with an incr eased risk of breast cancer. This information about the result of the mammogram report was provided to the patient to raise their awareness. Use this report when you speak with the patient about their risks for breast cancer, which includes their family history. At that time, you may recommend additional screening tests (Ultrasoun d or MRI) as these tests may add significant information. A negative radiographic report should not delay biopsy if a dominant or clinically suspicious mass is present. Up to ten percent of cancers are not identified on mammography. A negative report may reinforce clinical impression. Adenosis and dense breasts may obscure an underlying neoplasm. False positive reports average 6 to 10%. Patient will receive a letter notifying them of these results.
== END ==
PROVIDERS: PCP Nurse Practitioner Family; Visit Provider Nurse Practitioner Family
DX: N63.12 Unspecified lump in the right breast, upper inner quadrant
CPT/HCPCS: 76642; 77062; 77066; G0279

== ENCOUNTER → 2023-02-04 12:53 | Outpatient (BNVA) | payer MEDICARE, SELFPAY | PROVIDERS: PCP Nurse Practitioner Family; Referring Provider Nurse Practitioner Family; Visit Provider Surgery | DX: N63.12 Unspecified lump in the right breast, upper inner quadrant (principal) | CPT/HCPCS: 99214 ==

== ENCOUNTER 2023-02-09 13:31 | Outpatient (REF) | payer MEDICARE, SELFPAY ==
--- NOTE | 2023-02-09 13:30 | BREAST_PTH ---
PATIENT: Maryan Cruz LOC: [facility] U#:[id number] AGE/SX: 77/F ROOM: RE02/09/[address]: Fernie Benitez MD : 1945 BED: DIS: 02/09/2023 SPEC #: [id number] RECD: 02/09/23 18:14 STATUS: NAN REQ #: [id number] ANDREW: 02/09/23 13:[address]: Fernie Benitez DEPT: Surgical Specimen RECD BY: Ashley Martin ENTERED: 02/09/23 18:15 SP TYPE: Breast OTHR DR: Heladio Lowery DNP Tissues: 1 - BREAST BX NEEDLE Procedures: GROSS AND MICRO LEVEL 4 [id number] IPEX ESTROGEN/PROGESTERONE RECEPTOR IPEX STAIN Comments: [id number]
== END 2023-02-09 13:32 | disposition home or self-care (01) ==
LOC: LBN 13:31
PROVIDERS: PCP Nurse Practitioner Family; Visit Provider Surgery
DX: C50.911 Malignant neoplasm of unspecified site of right female breast (principal); Z17.0 Estrogen receptor positive status [ER+]
CPT/HCPCS: 88305; 88360

== ENCOUNTER 2023-03-06 04:34 | Outpatient (CLI) | payer MEDICARE, SELFPAY ==
[2023-03-06 13:18] LABS: ALT 24 U/L (14-59); AST 13 U/L (15-37); Albumin 3.8 g/dL (3.4-5.0); Alkaline Phosphatase 93 U/L (46-116); Anion Gap 7.7 mmol/L (3-11); BUN 30 mg/dL (7-18); Bilirubin, Total 0.6 mg/dL (0.2-1.0); CO2 26.3 mmol/L (21.0-32.0); CREATININE 0.9 mg/dL (0.55-1.02); Calcium 10.1 mg/dL (8.5-10.1); Calculated LDL 90 mg/dL (<100); Chloride 103 mmol/L (98-107); Cholesterol 197 mg/dL (<200); Estimated GFR 64.63 (mL/min/1.73m2); Glucose 114 mg/dL (74-106); HDL Cholesterol 100 mg/dL (40-60); Potassium 4.6 mmol/L (3.5-5.1); Sodium 137 mmol/L (136-145); Total Protein 7.7 g/dL (6.4-8.2); Triglyceride 39 mg/dL (<150)
== END 2023-03-06 04:35 | disposition home or self-care (01) ==
LOC: LOS 04:34
PROVIDERS: PCP Nurse Practitioner Family; Visit Provider Nurse Practitioner Family
DX: E78.5 Hyperlipidemia, unspecified (principal); R73.03 Prediabetes
CPT/HCPCS: 36415; 80053; 80061; 83036

== ENCOUNTER 2023-04-14 19:38 | Emergency (ER) | payer MEDICARE, SELFPAY ==
--- NOTE | 2023-04-14 19:46 | ED.GENADUL_ITS ---
Discharge Plan Disposition Patient Disposition: Home Condition: Improving Discharge Details Clinical Impression: Contusion of face, Head injury, Sprain of cervical neck, Breast cancer, Abrasion of face Primary Care Provider: Heladio Mcnamara ED Provider: Dori Morrison Home Meds and New Rx's Prescriptions: No Action cholecalciferol (vitamin D3) 25 mcg (1,000 unit) capsule 25 mcg PO DAILY ascorbic acid (vitamin C) 500 mg tablet 500 mg PO DAILY cetirizine [All Day Allergy (cetirizine)] 10 mg tablet 10 mg PO DAILY PRN gabapentin 300 mg capsule 300 mg PO DAILY atorvastatin 20 mg tablet 20 mg PO DAILY Qty: 90 3RF lisinopril 20 mg tablet 20 mg PO DAILY Qty: 90 3RF amlodipine 10 mg tablet 10 mg PO DAILY Qty: 90 3RF aspirin [Children's Aspirin] 81 mg Tablet,Chewable 81 mg PO DAILY Qty: 0 0RF Discharge Instructions Instructions: Head Injury (ED), Contusion in Adults (ED), Abrasion (ED) Additional Instructions: Wake every 4 hours for the next 24 hours and return here for any new or worrisome symptoms such as confusion, vomiting, blurry vision or any new symptoms such as chest pain or shortness of breath or any other concerns. Discharge Data Discharge Date/Time-TO BE ENTERED AT DEPARTURE: 04/14/23 22:56 Discharge Physician: Dori Morrison [facility] General Mode of arrival: ambulatory . Date/Time Provider Initiated Documentation: 04/14/23 19:46 . Limitations to Documentation: no limitations . Information obtained by: patient . HPI Narrative: Time seen was 1945. The patient is a 78-year-old female recently diagnosed with breast cancer who underwent a right lumpectomy. She tells me that she was wearing shoe track for winter boots, and a rock caught on them causing her to fall onto her left side hitting the side of her face. She went to express care and was advised to come to the emergency department for possible imaging. She is not on therapeutic anticoagulants. She denies any loss of consciousness. She denies any dizziness chest pain or shortness of breath prior to the fall. She is complaining of mild bilateral shoulder pain which is gradually worsening since the fall. She is right-hand dominant. She did sustain a small abrasion to her left uatsdin. She is complaining of a mild headache. She denies any visual disturbances or discharge from her ears or nose. She denies any malocclusion of her teeth or dental trauma. She was diagnosed with breast can cer between and and had her lumpectomy on March 30. She has not undergone any chemotherapy or radiation. She is scheduled for a PET scan at [facility] tomorrow at 1 PM and does not wish to stay here for several hours. She denies any numbness, tingling, weakness, chest pain, abdominal pain. She did take an [id number] analgesic prior to arrival. She does take 81 mg of aspirin daily but is otherwise not on any therapeutic anticoagulants. She has a history of mild anemia but did not endorse any weakness prior to the fall. She denies any GI bleeding or easy bruising. She believes her tetanus was updated within the last 5 years. This was confirmed and her tetanus is up-to-date. Related Data Home Medications Medication Instructions Recorded Confirmed ascorbic acid (vitamin C) 500 mg 500 mg PO DAILY 06/18/21 02/09/23 tablet cholecalciferol (vitamin D3) 25 25 mcg PO DAILY 06/18/21 02/09/23 mcg (1,000 unit) capsule aspirin 81 mg chewable tablet 81 mg PO DAILY #0 tabs 11/04/21 02/09/23 (Children's Aspirin) atorvastatin 20 mg tablet 20 mg PO DAILY #90 tabs 11/10/22 02/09/23 amlodipine 10 mg tablet 10 mg PO DAILY #90 tabs 01/16/23 02/09/23 lisinopril 20 mg tablet 20 mg PO DAILY #90 tabs 01/16/23 02/09/23 cetirizine 10 mg tablet (All Day 10 mg PO DAILY PRN 02/04/23 02/09/23 Allergy (cetirizine)) gabapentin 300 mg capsule 300 mg PO DAILY 04/14/23 Previous Rx's Medication Instructions Recorded aspirin 81 mg chewable tablet 81 mg PO DAILY #0 tabs 11/04/21 (Children's Aspirin) atorvastatin 20 mg tablet 20 mg PO DAILY #90 tabs 11/10/22 amlodipine 10 mg tablet 10 mg PO DAILY #90 tabs 01/16/23 lisinopril 20 mg tablet 20 mg PO DAILY #90 tabs 01/16/23 Allergies Allergy/AdvReac Type Severity Reaction Status Date / Time clindamycin Allergy Intermediate GI Upset Verified 04/14/23 18:16 amoxicillin Allergy Itchy palms Verified 04/14/23 18:16 Sulfa (Sulfonamide Allergy Hives Unverified 04/14/23 18:16 Antibiotics) hydrochlorothiazide AdvReac Severe Other (See Verified 04/14/23 18:16 Comment) General YANICK: 1 Review of Systems Narrative: see hpi Exam Narrative Exam Narrative: The patient was initially seen at triage. She is a well-developed well- nourished female in no acute distress. She is mildly hypertensive with a blood pressure 151/64. She is not tachycardic tachypneic or febrile. She has a normal room air O2 sat of 99%. Her GCS is 15. She has normal speech and gait. Const General: cooperative, healthy appearing, comfortable, no acute distress, well developed, well groomed and well hydrated Nutritional Appearance: average body habitus and well nourished Orientation: alert, awake and oriented x3 HENMT Head: normocephalic, abrasion left temporal 5 cm and No periorbital ecchymosis Ears: hearing grossly normal bilaterally and external ears normal General nose exam: external nose normal, nares normal and no nasal discharge Face and sinus: sinuses nontender and face symmetric Mouth: oral mucosae normal, lip normal, tongue normal, oropharynx normal, moist mucous membranes and other (Normal phonation. The patient is handling secretions.) Teeth and gingiva: dentition normal and other (No dental trauma. No malocclusion.) Throat: posterior oropharynx normal and uvula midline Other: No hemotympanum, otorrhea, rhinorrhea, Richard sign or raccoon's eyes Eyes Eyelids: eyelids normal Conjunctivae: conjunctivae normal Sclera: sclerae normal Cornea: corneas normal Pupils: PERRL EOM: EOM intact bilaterally and No nystagmus Direct ophthalmoscopy: normal light reflex Other: Abrasion as noted above. Neck Neck: normal visual inspection, full ROM, no lymphadenopathy, no meningeal signs, trachea midline and supple Lymphatic: no lymphadenopathy noted Other: Mild soreness bilaterally of the superior aspect of both shoulders. Mild bilateral paraspinous muscle spasm. No midline tenderness, step-off, bony crepitus or point tenderness. She has full range of motion of her neck. No carotid bruits were appreciated. Chest Other: The patient has a well-healing surgical scar on the right breast. Resp Effort & Inspection: normal respiratory effort, able to speak in complete sen tences, no audible wheezes, no nasal flaring, no respiratory distress, no retractions, no stridor, not tachypneic, no tracheal deviation, no use of accessory muscles, No prolonged expiratory phase and other (Normal inspiratory to expiratory ratio.) Auscultation: clear to auscultation bilaterally, no rales, no rhonchi, no wheezes and no rubs Tactile Fremitus: tactile fremitus absent Cardio Jugular venous pressure: no JVD Palpation: normal PMI Rate: regular rate Rhythm: regular rhythm Heart Sounds: S1 normal, S2 normal, no gallops, no murmurs and no rubs GI Inspection: normal to inspection and non-distended Palpation: soft, no hepatosplenomegaly, no guarding and nontender Percussion: normal to percussion Auscultation: normal bowel sounds General: No CVA tenderness Back/Spine/Pelvis Back: no CVA tenderness and No back tenderness Cervical Spine: normal cervical lordosis, cervical ROM normal, No collar present, cervical muscular tenderness (Mild bilateral), No pain with cervical ROM, cervical spasm, No cervical spinal tenderness, No step off deformity and No cervical ROM abnormal Thoracic/Lumbar Spine: thoracic and lumbar spine normal to inspection, No thoracic spinal tenderness and No lumbar spinal tenderness Pelvis: no pain with anterior-posterior compression and no pain with lateral compression Skin General skin exam: no rashes or lesions noted, turgor normal, no petechiae, no purpura and other (Skin is normal for ethnicity.) Lesions: no lesions Rashes: no rashes Trauma: other (Abrasion described above) Neuro General: patient alert, patient awake, patient oriented x3, moves all extremities, no meningeal signs, no focal motor deficits and CN's II-XI intact bilaterally Cranial Nerves: CN's II-XI intact bilaterally, PERRL, accommodation normal, EOM intact bilaterally, no nystagmus, facial strength normal, tongue midline, hearing normal and no nystagmus Cognition: normal cognition Speech: speech normal Gait: normal gait Motor: muscle tone normal throughout and strength 5/5 throughout Sensory Exam: no sensory deficits noted DTR's: Rt Biceps: 2+, Lt Biceps: 2+, Rt Brachioradialis: 1+, Lt Brachioradialis: 1+, Rt Patellar: 2+, Lt Patellar: 2+, Rt Ankle: 1+ and Lt Ankle: 1+ Plantar Reflexes: Downgoing: bilateral Coordination: [id number] test normal, Romberg test normal and Does not sway with eyes open Comatose Patient: corneal reflex present Pupils: Normal pupillary reactivity/response: bilateral Extrem General: normal to inspection, full ROM, capillary refill normal, no clubbing, cyanosis or edema and no calf tenderness Psych Appearance: grossly normal Affect: normal affect Attitude: cooperative Thought Process: normal Thought Content: normal Insight: insight good Judgment: judgment good Other: The patient appears to have capacity make medical decisions. Course 2202 pm I have reviewed the patient's radiographs. She has remained stable with no change in her neurologic exam. I have asked that her films be pushed to the [facility]. I have advised her to return here for any new or worrisome symptoms such as worsening headache neck pain, numbness, tingling, weakness, chest pain, abdominal pain, or any concerns. The patient/family/caregiver voiced agreement and understanding of the discharge instructions and plan for outpatient follow- up. There were advised to return to the Emergency Department for any new or worrisome symptoms or concerns. Due to voice recognition software, sound alike and misspelled words may be contained in the documentation. Medical Decision Making This is an unfortunate 78-year-old female recently diagnosed with breast cancer who has undergone lumpectomy on March 30 2 presents with a mechanical fall that occurred several hours prior to arrival. She was seen at [facility] and referred here for possible imaging. She denies any chest pain dizziness or shortness of breath prior to the fall. She has not had any easy bruising. She does take 81 mg of aspirin a day but is not on any other therapeutic anticoagulants. She has a normal neurologic exam. She had a superficial abrasion to the left uatsdin. She does complain of a mild headache and mild bilateral paraspinous and shoulder soreness. She has a distant history of mild anemia. Has not had any recent weakness or fatigue. She is mildly hypertensive but not tachycardic. I doubt she has an epidural hematoma which by now would have manifested with a decreasing neurologic status. She certainly could have a subdural hematoma. I will order a CT of the head and C-spine without contrast. I do not think she needs any further blood work and is reluctant to stay for an extensive workup because she has an appointment for a PET scan tomorrow at [facility] and has to be there at noon and the study is at 1 PM. After shared decision making we have decided against any lab work. She understands risks and benefits, and voices as much. We have checked her tetanus status and it is up-to-date. She did not experience any chest pain or dizziness and gives an excellent history of a mechanical fall with a rock getting caught in the tracks of her boots. Differential Diagnosis Differential Diagnosis: As above Medical Records Medical records reviewed: Yes I reviewed the patient's medical records. Medical records narrative: As above see HPI Quality:SDOH Health Related Social Needs: No Data to Display PFSH All Active Problems (Updated 04/14/23 @ 22:08 by Dori Morrison MD) Abrasion of face (Acute) Sprain of cervical neck (Acute) Head injury (Acute) Contusion of face (Acute) Breast cancer (Chronic) Mass of upper inner quadrant of right breast (Acute) Prediabetes (Acute) Breast mass, right (Acute) 2.5 cm diameter, 12:00, 1 cm above areola, extends superiorly toward clavicle Hyponatremia (Acute) TIA (transient ischemic attack) (Acute) COVID (Acute) Environmental allergies (Acute) Overweight (BMI 25.0-29.9) (Chronic) Hyperlipidemia (Chronic) Essential hypertension (Acute 10/03/10) Medical History Elevated glucose Diarrhea Cyst of skin Abscess of back 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 Positive for estrogen receptors History of hysterectomy Social History Smoking/Tobacco Use Status: Never Second Hand Exposure: Yes Smoking risk assessment performed?: Yes Alcohol Intake: never Drug use: Never Substance use type: does not use Adopted: No Caregiver/Support person: No Foster care: No Household members: spouse Housing: house Communication Needs: None Education Level: college Details: BA Do you need help understanding health information?: Often current occupation: Retired Pets and animals: Yes Pets and animals: cat(s) Current gender identity: female What is your relationship status?: How often do you talk on the phone with friends or family?: once per week How often do you get together with friends or relatives?: once per week Do you belong to any clubs or organized social groups?: no Panel score (0-1 are the most socially isolated patients): 1 What type of physical activity do you participate in: walking Duration: 45-60 minutes/day Frequency: 5-6 times per week Agree to transfusion: Yes Seatbelt use: always Drive intox or ride w/intox coach tour driver: No Working smoke detector in home: Yes Carbon monox detector in home: Yes Firearms in home: Yes Firearms unloaded and locked: Yes Do you feel safe at home: Yes Do you feel safe in your relationship?: Yes Victim of physical abuse: No Victim of emotional abuse: No Victim of sexual abuse: No
[2023-04-14 19:53] VITALS: BP 151/64; PULSE 63; RESP 16; TEMP 36.6; O2SAT 99
--- NOTE | 2023-04-14 20:34 | DI.CT_ITS ---
Exam(s) CT HEAD CERV SPINE FACIAL WO EXAM: CT HEAD CERV SPINE FACIAL WO CLINICAL HISTORY: mechanical fall. TECHNIQUE: Imaging Protocol: Axial computed tomography images with coronal and sagittal reformatted images were created and reviewed COMPARISON: CT CT BRAIN NECK CTA from 11/03/2021 FINDINGS: CT BRAIN: There are no skull fractures. Small amount of fluid noted in the right sphenoid sinus. Other sinuse s clear. There is no evidence of intracranial hemorrhage, mass effect, or shift of midline structures. There are no extra-axial fluid collections. The ventricles are not enlarged or shifted and there is no blo od within the ventricular system nor within the basal cisterns. CT MAXILLOFACIAL BONES: There is no evidence of facial fractures nor fluid in the visualized paranasal sinuses. there is no evidence of orbital blowout fracture. CT CERVICAL SPINE: There is no evidence of fracture nor listhesis. No significant prevertebral soft tissue swelling. T here is multilevel disc space narrowing in the lower cervical spine. No listhesis. There is multile kirsten facet arthropathy. No facet malalignment evident. No significant osseous lesions evident. IMPRESSION: No acute intracranial findings on this noninfused CT scan of the brain. No evidence of facial nor orbital blowout fractures. No evidence of cervical spine fracture, malalignment, nor acute compromise of the cervical spinal can al. Multilevel degenerative changes in the cervical spine evident. RADIATION DOSE DELIVERED: 1,921.76mGy.cm Total DLP DATA REPOSITORY: All CT scans at this facility are submitted to the National Radiology Data Registry (NRDR) Dose Index Registry (DIR) with the [employer] (ACR). RADIATION OPTIMIZATION: All CT scans at this facility use at least one of these dose optimization te chniques: automated exposure control; mA and/or kV adjustment per patient size (includes targeted exa ms where dose is matched to clinical indication); or iterative reconstruction.
--- NOTE | 2023-04-14 21:54 | DI.VRAD_ITS ---
PROCEDURE INFORMATION: Exam: CT Head Without Contrast Exam date and time: 04/14/2023 9:04 PM Age: 78 years old Clinical indication: Injury or trauma; Blunt trauma (contusions or hematomas); Consciousness not specified; Other: Bruise by left eye; Injury date: 04/14/23; Injury details: Mechanical fall TECHNIQUE: Imaging protocol: Computed tomography of the head without contrast. Radiation optimization: All CT scans at this facility use at least one of these dose optimization techniques: automated exposure control; mA and/or kV adjustment per patient size (includes targeted exams where dose is matched to clinical indication); or iterative reconstruction. COMPARISON: MR BRAIN WO 11/04/2021 11:31 AM FINDINGS: Brain: There is moderate diffuse cerebral atrophy present, consistent with this patient's age. There is mild diffuse heterogeneity of the white matter attenuation, consistent with chronic white matter ischemic changes. No intracranial hemorrhage, midline shift, or mass effect. Cerebral ventricles: The ventricular system demonstrates mild diffuse compensatory enlargement. Paranasal sinuses: Minimal sphenoid sinus mucosal thickening. Other paranasal sinuses are unremarkable. Mastoid air cells: Visualized mastoid air cells are well aerated. Bones/joints: Unremarkable. No acute fracture. Soft tissues: Unremarkable. Vasculature: Calcified atherosclerotic disease. IMPRESSION: No acute fracture or intracranial hemorrhage. PROCEDURE INFORMATION: Exam: CT Maxillofacial Without Contrast Exam date and time: 04/14/2023 9:04 PM Age: 78 years old Clinical indication: Injury or trauma; Blunt trauma (contusions or hematomas); Consciousness not specified; Other: Bruise by left eye; Injury date: 04/14/23; Injury details: Mechanical fall TECHNIQUE: Imaging protocol: Computed tomography of the face without contrast. Radiation optimization: All CT scans at this facility use at least one of these dose optimization techniques: automated exposure control; mA and/or kV adjustment per patient size (includes targeted exams where dose is matched to clinical indication); or iterative reconstruction. COMPARISON: MR BRAIN WO 11/04/2021 11:31 AM FINDINGS: Orbital cavities: Orbits are normal. Globes are unremarkable. Bones/joints: No acute fracture. Paranasal sinuses: Minimal right maxillary sinus mucosal thickening and fluid. Mild right-sided sphenoid sinus mucosal thickening. Soft tissues: Unremarkable. IMPRESSION: 1. No acute fracture. 2. Minimal right maxillary and sphenoid sinus disease. PROCEDURE INFORMATION: Exam: CT Cervical Spine Without Contrast Exam date and time: 04/14/2023 9:04 PM Age: 78 years old Clinical indication: Injury or trauma; Blunt trauma (contusions or hematomas); Consciousness not specified; Other: Bruise by left eye; Injury date: 04/14/23; Injury details: Mechanical fall TECHNIQUE: Imaging protocol: Computed tomography of the cervical spine without contrast. Radiation optimization: All CT scans at this facility use at least one of these dose optimization techniques: automated exposure control; mA and/or kV adjustment per patient size (includes targeted exams where dose is matched to clinical indication); or iterative reconstruction. COMPARISON: CT BRAIN NECK CTA 11/03/2021 9:35 PM FINDINGS: Bones/joints: Moderate to severe multilevel lower cervical degenerative disc disease. Scattered bilateral severe facet arthropathy. No acute fracture or dislocation. C2-C3: Facet arthropathy. No significant central canal or neural foraminal stenosis. C3-C4: Facet arthropathy. No significant central canal or neural foraminal stenosis. C4-C5: Posterior osteophytes and facet arthropathy. Moderate bilateral neural foraminal stenosis. C5-C6: Posterior osteophytes and facet arthropathy. Severe right and moderate left neural foraminal stenosis. C6-C7: Posterior osteophytes. Mild right neural foraminal stenosis. C7-T1: No significant disc bulge or herniation. No severe spinal canal stenosis. No significant neural foraminal narrowing. Lungs: Lung apices are normal. Soft tissues: Unremarkable. IMPRESSION: 1. No acute fracture. 2. Multilevel cervical spondylosis, detailed above. Dictated and Authenticated by: Ernesto Dodson MD. Ordering:RACHAEL Meadows MD
--- NOTE | 2023-04-16 12:48 | W.ED.FU ---
Date of service: 04/14/23 Time of Service: 19:45 Follow Up Plan: I forgot to include the results of her imaging on my initial chart. They are as follows: Patient Name: Maryan Cruz Unit #: [id number] Loc: ER Ordering Provider: Status: REG ER Primary Care Provider: Heladio Mcnamara NP Date of Exam: 04/14/23 Sex: F : 1945 Age: 78 Exam(s) PROCEDURE INFORMATION: Exam: CT Head Without Contrast Exam date and time: 04/14/2023 9:04 PM Age: 78 years old Clinical indication: Injury or trauma; Blunt trauma (contusions or hematomas); Consciousness not specified; Other: Bruise by left eye; Injury date: 04/14/23; Injury details: Mechanical fall TECHNIQUE: Imaging protocol: Computed tomography of the head without contrast. Radiation optimization: All CT scans at this facility use at least one of these dose optimization techniques: automated exposure control; mA and/or kV adjustment per patient size (includes targeted exams where dose is matched to clinical indication); or iterative reconstruction. COMPARISON: MR BRAIN WO 11/04/2021 11:31 AM FINDINGS: Brain: There is moderate diffuse cerebral atrophy present, consistent with this patient's age. There is mild diffuse heterogeneity of the white matter attenuation, consistent with chronic white matter ischemic changes. No intracranial hemorrhage, midline shift, or mass effect. Cerebral ventricles: The ventricular system demonstrates mild diffuse compensatory enlargement. Paranasal sinuses: Minimal sphenoid sinus mucosal thickening. Other paranasal sinuses are unremarkable. Mastoid air cells: Visualized mastoid air cells are well aerated. Bones/joints: Unremarkable. No acute fracture. Soft tissues: Unremarkable. Vasculature: Calcified atherosclerotic disease. IMPRESSION: No acute fracture or intracranial hemorrhage. PROCEDURE INFORMATION: Exam: CT Maxillofacial Without Contrast Exam date and time: 04/14/2023 9:04 PM Age: 78 years old Clinical indication: Injury or trauma; Blunt trauma (contusions or hematomas); Consciousness not specified; Other: Bruise by left eye; Injury date: 04/14/23; Injury details: Mechanical fall TECHNIQUE: Imaging protocol: Computed tomography of the face without contrast. Radiation optimization: All CT scans at this facility use at least one of these dose optimization techniques: automated exposure control; mA and/or kV adjustment per patient size (includes targeted exams where dose is matched to clinical indication); or iterative reconstruction. COMPARISON: MR BRAIN WO 11/04/2021 11:31 AM FINDINGS: Orbital cavities: Orbits are normal. Globes are unremarkable. Bones/joints: No acute fracture. Paranasal sinuses: Minimal right maxillary sinus mucosal thickening and fluid. Mild right-sided sphenoid sinus mucosal thickening. Soft tissues: Unremarkable. IMPRESSION: 1. No acute fracture. 2. Minimal right maxillary and sphenoid sinus disease. PROCEDURE INFORMATION: Exam: CT Cervical Spine Without Contrast Exam date and time: 04/14/2023 9:04 PM Age: 78 years old Clinical indication: Injury or trauma; Blunt trauma (contusions or hematomas); Consciousness not specified; Other: Bruise by left eye; Injury date: 04/14/23; Injury details: Mechanical fall TECHNIQUE: Imaging protocol: Computed tomography of the cervical spine without contrast. Radiation optimization: All CT scans at this facility use at least one of these dose optimization techniques: automated exposure control; mA and/or kV adjustment per patient size (includes targeted exams where dose is matched to clinical indication); or iterative reconstruction. COMPARISON: CT BRAIN NECK CTA 11/03/2021 9:35 PM FINDINGS: Bones/joints: Moderate to severe multilevel lower cervical degenerative disc disease. Scattered bilateral severe facet arthropathy. No acute fracture or dislocation. C2-C3: Facet arthropathy. No significant central canal or neural foraminal stenosis. C3-C4: Facet arthropathy. No significant central canal or neural foraminal stenosis. C4-C5: Posterior osteophytes and facet arthropathy. Moderate bilateral neural foraminal stenosis. C5-C6: Posterior osteophytes and facet arthropathy. Severe right and moderate left neural foraminal stenosis. C6-C7: Posterior osteophytes. Mild right neural foraminal stenosis. C7-T1: No significant disc bulge or herniation. No severe spinal canal stenosis. No significant neural foraminal narrowing. Lungs: Lung apices are normal. Soft tissues: Unremarkable. IMPRESSION: 1. No acute fracture. 2. Multilevel cervical spondylosis, detailed above. Dictated and Authenticated by: Ernesto Dodson MD.
== END 2023-04-14 22:56 | disposition home or self-care (01) ==
PROVIDERS: Emergency Provider Emergency Medicine Emergency Medical Services; PCP Nurse Practitioner Family
DX: S13.9XXA Sprain of joints and ligaments of unspecified parts of neck, initial encounter (principal); S00.81XA Abrasion of other part of head, initial encounter; S09.90XA Unspecified injury of head, initial encounter; S00.83XA Contusion of other part of head, initial encounter; C50.912 Malignant neoplasm of unspecified site of left female breast; Z98.890 Other specified postprocedural states
CPT/HCPCS: 99284; 70450; 70486; 72125; 99283

== ENCOUNTER 2023-06-08 06:08 | Outpatient (CLI) | payer MEDICARE, SELFPAY ==
--- NOTE | 2023-06-08 14:37 | W.PFT ---
Date of service: 06/08/23 Time of Service: 08:01 Pulmonary Function Test Result Indications: Lung cancer Interpretation Spirometry: There is no airflow limitation. Lung Volumes: Normal lung volumes Diffusion Capacity: Normal diffusion Airway Pressure: Normal airways resistance Impression Normal pulmonary function testing Clinical Correlation therefore is recommended.
== END 2023-06-08 06:09 | disposition home or self-care (01) ==
PROVIDERS: PCP Nurse Practitioner Family; Visit Provider Internal Medicine
DX: C34.32 Malignant neoplasm of lower lobe, left bronchus or lung (principal)
CPT/HCPCS: 94010; 94726; 94729

== ENCOUNTER → 2023-06-16 04:12 | Outpatient (CLI) | payer MEDICARE, SELFPAY ==
--- NOTE | 2023-06-16 | DI.MRI_ITS ---
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 Both noninfused and contrast i nfused sequences were performed. IV Contrast injected was 15 cc Dotarem. COMPARISON: MR MR BRAIN WO from 11/04/[address] HEAD CERV SPINE FACIAL WO from 04/14/2023 FINDINGS: CEREBRAL PARENCHYMA: The previously described nonenhancing foci of FLAIR bright signal abnormality in the right frontal lo be white matter remain unchanged from MRI scan of October 2021 and are most probably related to chr onic ischemic changes. However, on the present study there is a focal area of abnormal enhancement m easuring 8 x 6 mm just anterior to the left side of the 4th ventricle-superior aspect of the left sup erior cerebellar peduncle/pontomesencephalic junction. This exhibits very minimal signal abnormality on T2 and FLAIR imaging and there is no surrounding edema nor restricted diffusion at this level. H ypointense signal is seen on susceptibility weighted imaging. There is a possibly that this is a sma ll vascular malformation such as cavernoma. Otherwise, on post injected T1 images there is a subtle focus of enhancement in the left of Cipro par ietal region, this measuring 3 x 3 mm, not ring-enhancing and not exhibiting surrounding edema; never theless cannot exclude early metastatic lesion. PITUITARY GLAND: No mass nor parasellar abnormality. No obvious abnormality in the cavernous sinuses. FLOW VOIDS: The expected flow void are noted. No evidence of obvious aneurysm nor obvious vascular ma lformation. PARANASAL SINUSES: No significant findings. ORBITS: No obvious abnormal findings. IMPRESSION: 1. There is a well-defined enhancing 8 x 6 mm lesion in the posterior left pontomesencephalic junctio n, just anterior to the left side of the 4th ventricle. There is no edema surrounding this finding. No restricted diffusion. There is hypointense signal on SWI. There is a possibly that this is not a metastatic lesion but an incidental cavernoma. This appears to have been present on SWI images of MRI scan of 11/04/2021 and has not increased in size since that noninfused CT scan study. 2. There is a small 3 mm enhancing focus in the left occipital parietal region. There are no typical metastatic appearing ring enhancing lesions in the brain. 3. There is some mild unchanged periventricular signal abnormality in the left frontal lobe white ma tter, unchanged from 11/04/2021 and most probably related to chronic small vessel ischemic change. N o evidence of restricted diffusion at this level nor elsewhere in the brain. Recommend repeat contrast infused MRI scan in 6 months, earlier if clinically indicated. DATA REPOSITORY:
[2023-06-16 10:03] LABS: CREATININE 0.9 mg/dL (0.55-1.02); Estimated GFR 64.63 (mL/min/1.73m2)
[2023-06-16] MEDS: Normal Saline Flush 10 ML SYR IVP (10:11)
[2023-06-16] MEDS: Gadoterate meglumine 20 ML SYRINGE 15 ML IVP (10:12)
== END ==
PROVIDERS: PCP Nurse Practitioner Family; Visit Provider Internal Medicine
DX: C34.32 Malignant neoplasm of lower lobe, left bronchus or lung (principal)
CPT/HCPCS: 70553; 82565

== ENCOUNTER → 2023-07-02 00:25 | Outpatient (CLI) | payer MEDICARE, SELFPAY ==
--- NOTE | 2023-07-02 | DI.NM_ITS ---
APPROVED REPORT Exam: Exercise Treadmill Patient Location: Out-Patient Room/Bed: Stress Nurse: Анна Blanco RN, Sushma Sena RN Ordering Provider:ROSIO LEE, Contact Number: [phone] BMI: 28.51 Baseline Rhythm: Sinus Bradycardia Indications: primary malignant neoplasm of LLL lung; surgical planning Medical History Medical History: elevated glucose, primary malignant neoplasm of cervix, breast ca, TIA, HLD, hypomat remia, HTN Cardiac Medications: amlodipine, aspirin, atorvastatin, certrizine, gabapentin, lisinopril, letrozole Allergies: clindamycin, amoxicillin, sulfa, hydrochlorothiazide Cardiac Risk Factors: family hx, HTN, HLD Previous Cardiac Procedures: none Pretest Chest Pain Characteristics: none Exercise History: Sedentary Physical Disabilities: none Lung Sounds: clear Heart Sounds: regular Stress Test Details Test: Exercise stress testing was performed using a Nelson protocol. Nuclear Acquisition: Rest Tc-99m/Stress Tc-99m 1 day Rest Isotope: Tc-99m Sestamibi. Dose: 10.0 Date: 07/02/2023 Injection Time: 1100 Stress Isotope: Tc-99m Sestamibi. Dose: 30.0 Date: 07/02/2023 Injection Time: 1336 HR Resting HR Supine: 59 bpm Max Heart Rate (APMHR): 140.282762 bpm Resting HR Standin bpm Target HR (85% APMHR): 119.549324 bpm Max HR Achieved: 120 bpm % of APMHR: 85.71 Recovery HR: 79 bpm HR response to stress: Normal HR response to stress BP Resting BP Supine: 152/72 mmHg Resting BP Standin/70 mmHg Max BP: 178/50 mmHg Recovery BP: 164/70 mmHg BP response to stress: Normal blood pressure response to stress. ECG Resting ECG: Sinus Bradycardia Stress ECG: Sinus Tachycardia ST Change: No significant ST segment changes noted Arrhythmia: occasional PVCs Recovery ECG: Sinus Rhythm Recovery ST Change: No significant ST segment changes noted Recovery Arrhythmia: occasional PAC, occasional PVC Clinical Reason for Termination: Target HR Achieved, Leg pain/Claudication Stress Symptoms: Leg Fatigue Exercise duration: 04 min50 sec Highest Stage Reached: 2 Exercise capacity: 6.85 METs Angina Score: None Verde Treadmill Score: 4.5 Rate Pressure Product: 22836 Stress ECG Conclusion 1. Resting EKG showed poor R wave progression 2. Patient exercised on the Nelson protocol completed a workload of 6.85 METS 3. Normal heart rate and blood pressure response to exercise. The patient achieved 86% of predicted heart rate for age Verde Treadmill Score is 4.5 which is Moderate risk. Stress Test Summary STAGE Time (mins) Speed (mph) Grade (%) HR BP SpO2 SYMPTOMS METS Supine 59 152/72 Standing 65 154/70 1 3 1.7 10 78 4.5 2 6 2.5 12 105 7 1 min recovery 101 150/52 3 min recovery 83 178/50 98 6 min recovery 79 164/70 MPI Conclusion Myocardial perfusion is normal. There is no ischemia or evidence of prior infarction Ejection fraction is 85%, wall motion is normal Radiologist Interpretation Radiologist Interpretation by: Stefan Benitez MD Interpretation Date/Time: 07/02/2023 17:51:10
== END ==
PROVIDERS: PCP Nurse Practitioner Family; Visit Provider Surgery
DX: Z01.810 Encounter for preprocedural cardiovascular examination (principal); R94.31 Abnormal electrocardiogram [ECG] [EKG]
CPT/HCPCS: 78452; 93016; 93018; 93017

== ENCOUNTER 2023-07-15 05:23 | Outpatient (CLI) | payer MEDICARE, SELFPAY ==
[2023-07-15 12:52] LABS: Abs Immature Grans 0.02 10^3/uL (0.0-0.06); Absolute Basophil Count 0.03 10^3/uL (0.0-0.2); Absolute Eosinophil Count 0.11 10^3/uL (0.0-0.7); Absolute Lymphocyte Count 1.75 10^3/uL (1.2-3.4); Absolute Monocyte Count 0.54 10^3/uL (0.1-0.8); Absolute Neutrophil Count 5.41 10^3/uL (1.2-6.7); Basophils % 0.4 %; Eosinophils % 1.4 %; HCT 35.9 % (36.0-46.0); HGB 11.9 g/dL (11.2-15.7); Immature Grans % 0.3 %; Lymphocytes % 22.3 %; MCH 30.4 pg (27.0-33.0); MCHC 33.1 % (32.0-36.0); MCV 92 fL (80-95); Monocytes % 6.9 %; Neutrophils % 68.7 %; Platelet Count 271 10^3/uL (130-400); RBC 3.91 10^6/uL (3.93-5.22); RDW 12.8 % (11.7-14.6); RDW-SD 43.2 fL; WBC 7.86 10^3/uL (4.4-10.8)
[2023-07-15 13:12] LABS: ALT 25 U/L (14-59); AST 14 U/L (15-37); Albumin 3.8 g/dL (3.4-5.0); Alkaline Phosphatase 102 U/L (46-116); Anion Gap 6.9 mmol/L (3-11); BUN 28 mg/dL (7-18); Bilirubin, Total 0.5 mg/dL (0.2-1.0); CO2 27.1 mmol/L (21.0-32.0); Calcium 9.8 mg/dL (8.5-10.1); Chloride 101 mmol/L (98-107); Estimated GFR 56.95 (mL/min/1.73m2); Glucose 132 mg/dL (74-106); Magnesium 2.1 mg/dL (1.8-2.4); Potassium 4.3 mmol/L (3.5-5.1); Sodium 135 mmol/L (136-145); Total Protein 7.3 g/dL (6.4-8.2)
== END 2023-07-15 05:24 | disposition home or self-care (01) ==
LOC: LBO 05:23
PROVIDERS: PCP Nurse Practitioner Family; Visit Provider Internal Medicine Medical Oncology
DX: C34.32 Malignant neoplasm of lower lobe, left bronchus or lung (principal)
CPT/HCPCS: 36415; 80053; 83735; 85025

== ENCOUNTER 2023-08-05 09:39 | Outpatient (CLI) | payer MEDICARE, SELFPAY ==
[2023-08-05 09:44] LABS: Abs Immature Grans 0.04 10^3/uL (0.0-0.06); Absolute Basophil Count 0.02 10^3/uL (0.0-0.2); Absolute Eosinophil Count 0.07 10^3/uL (0.0-0.7); Absolute Lymphocyte Count 1.38 10^3/uL (1.2-3.4); Absolute Monocyte Count 0.66 10^3/uL (0.1-0.8); Absolute Neutrophil Count 4.22 10^3/uL (1.2-6.7); Basophils % 0.3 %; Eosinophils % 1.1 %; HCT 36.3 % (36.0-46.0); HGB 11.7 g/dL (11.2-15.7); Immature Grans % 0.6 %; Lymphocytes % 21.6 %; MCH 30.1 pg (27.0-33.0); MCHC 32.2 % (32.0-36.0); MCV 93 fL (80-95); MPV 8.3 fL (8.0-11.0); Monocytes % 10.3 %; Neutrophils % 66.1 %; Platelet Count 328 10^3/uL (130-400); RBC 3.89 10^6/uL (3.93-5.22); RDW 13.2 % (11.7-14.6); RDW-SD 43.9 fL; WBC 6.39 10^3/uL (4.4-10.8)
[2023-08-05 09:59] LABS: ALT 32 U/L (14-59); AST 15 U/L (15-37); Albumin 3.7 g/dL (3.4-5.0); Alkaline Phosphatase 121 U/L (46-116); Anion Gap 5.5 mmol/L (3-11); BUN 23 mg/dL (7-18); Bilirubin, Total 0.3 mg/dL (0.2-1.0); CO2 29.5 mmol/L (21.0-32.0); CREATININE 0.9 mg/dL (0.55-1.02); Chloride 102 mmol/L (98-107); Estimated GFR 64.63 (mL/min/1.73m2); Glucose 105 mg/dL (74-106); Magnesium 2.1 mg/dL (1.8-2.4); Potassium 4.4 mmol/L (3.5-5.1); Sodium 137 mmol/L (136-145); Total Protein 7.4 g/dL (6.4-8.2)
== END 2023-08-05 09:40 | disposition home or self-care (01) ==
LOC: LBO 09:39
PROVIDERS: PCP Nurse Practitioner Family; Referring Provider Internal Medicine Medical Oncology; Visit Provider Internal Medicine Medical Oncology
DX: C34.32 Malignant neoplasm of lower lobe, left bronchus or lung (principal)
CPT/HCPCS: 36415; 80053; 83735; 85025

== ENCOUNTER 2023-08-24 04:00 | Outpatient (CLI) | payer MEDICARE, SELFPAY ==
[2023-08-24 10:38] LABS: Abs Immature Grans 0.02 10^3/uL (0.0-0.06); Absolute Basophil Count 0.01 10^3/uL (0.0-0.2); Absolute Eosinophil Count 0.05 10^3/uL (0.0-0.7); Absolute Monocyte Count 0.63 10^3/uL (0.1-0.8); Absolute Neutrophil Count 3.62 10^3/uL (1.2-6.7); Basophils % 0.2 %; Eosinophils % 0.9 %; HCT 31.7 % (36.0-46.0); HGB 10.4 g/dL (11.2-15.7); Immature Grans % 0.3 %; Lymphocytes % 24.4 %; MCH 30.2 pg (27.0-33.0); MCHC 32.8 % (32.0-36.0); MCV 92 fL (80-95); MPV 8.1 fL (8.0-11.0); Neutrophils % 63.2 %; Platelet Count 220 10^3/uL (130-400); RBC 3.44 10^6/uL (3.93-5.22); RDW 14.5 % (11.7-14.6); RDW-SD 46.1 fL; WBC 5.73 10^3/uL (4.4-10.8)
[2023-08-24 10:52] LABS: ALT 24 U/L (14-59); AST 14 U/L (15-37); Albumin 3.7 g/dL (3.4-5.0); Alkaline Phosphatase 112 U/L (46-116); Anion Gap 6.7 mmol/L (3-11); BUN 25 mg/dL (7-18); Bilirubin, Total 0.31 mg/dL (0.2-1.0); CO2 30.3 mmol/L (21.0-32.0); Calcium 9.9 mg/dL (8.5-10.1); Chloride 99 mmol/L (98-107); Estimated GFR 56.95 (mL/min/1.73m2); Glucose 111 mg/dL (74-106); Magnesium 2.1 mg/dL (1.8-2.4); Potassium 4.8 mmol/L (3.5-5.1); Sodium 136 mmol/L (136-145); Total Protein 7.1 g/dL (6.4-8.2)
== END 2023-08-24 04:01 | disposition home or self-care (01) ==
LOC: LBO 04:01
PROVIDERS: PCP Nurse Practitioner Family; Visit Provider Internal Medicine Medical Oncology
DX: C34.12 Malignant neoplasm of upper lobe, left bronchus or lung (principal)
CPT/HCPCS: 36415; 80053; 83735; 85025

== ENCOUNTER 2023-09-23 02:36 | Outpatient (CLI) | payer MEDICARE, SELFPAY ==
[2023-09-23 09:20] LABS: Abs Immature Grans 0.02 10^3/uL (0.0-0.06); Absolute Basophil Count 0.02 10^3/uL (0.0-0.2); Absolute Eosinophil Count 0.04 10^3/uL (0.0-0.7); Absolute Lymphocyte Count 1.22 10^3/uL (1.2-3.4); Absolute Monocyte Count 0.86 10^3/uL (0.1-0.8); Basophils % 0.2 %; Eosinophils % 0.4 %; HCT 31.9 % (36.0-46.0); HGB 10.4 g/dL (11.2-15.7); Immature Grans % 0.2 %; Lymphocytes % 12.6 %; MCH 31.5 pg (27.0-33.0); MCHC 32.6 % (32.0-36.0); MCV 97 fL (80-95); MPV 8.4 fL (8.0-11.0); Monocytes % 8.9 %; Neutrophils % 77.7 %; Platelet Count 250 10^3/uL (130-400); RDW 16.9 % (11.7-14.6); RDW-SD 58.9 fL; WBC 9.66 10^3/uL (4.4-10.8)
[2023-09-23 09:38] LABS: ALT 22 U/L (14-59); AST 14 U/L (15-37); Albumin 3.8 g/dL (3.4-5.0); Alkaline Phosphatase 112 U/L (46-116); Anion Gap 6.4 mmol/L (3-11); BUN 26 mg/dL (7-18); Bilirubin, Total 0.48 mg/dL (0.2-1.0); CO2 29.6 mmol/L (21.0-32.0); CREATININE 1.1 mg/dL (0.55-1.02); Calcium 10.3 mg/dL (8.5-10.1); Chloride 102 mmol/L (98-107); Glucose 104 mg/dL (74-106); Potassium 4.2 mmol/L (3.5-5.1); Sodium 138 mmol/L (136-145); Total Protein 7.3 g/dL (6.4-8.2)
== END 2023-09-23 02:37 | disposition home or self-care (01) ==
LOC: LBO 02:36
PROVIDERS: PCP Nurse Practitioner Family; Visit Provider Internal Medicine Medical Oncology
DX: C34.32 Malignant neoplasm of lower lobe, left bronchus or lung (principal)
CPT/HCPCS: 36415; 80053; 83735; 85025

== ENCOUNTER 2023-10-19 03:07 | Outpatient (CLI) | payer MEDICARE, SELFPAY ==
[2023-10-19 10:56] LABS: Abs Immature Grans 0.05 10^3/uL (0.0-0.06); Absolute Basophil Count 0.03 10^3/uL (0.0-0.2); Absolute Eosinophil Count 0.04 10^3/uL (0.0-0.7); Absolute Lymphocyte Count 1.27 10^3/uL (1.2-3.4); Absolute Monocyte Count 0.54 10^3/uL (0.1-0.8); Absolute Neutrophil Count 5.82 10^3/uL (1.2-6.7); Basophils % 0.4 %; Eosinophils % 0.5 %; HCT 32.3 % (36.0-46.0); HGB 10.4 g/dL (11.2-15.7); Immature Grans % 0.6 %; Lymphocytes % 16.4 %; MCH 32.4 pg (27.0-33.0); MCHC 32.2 % (32.0-36.0); MCV 101 fL (80-95); MPV 8.1 fL (8.0-11.0); Neutrophils % 75.1 %; Platelet Count 229 10^3/uL (130-400); RBC 3.21 10^6/uL (3.93-5.22); RDW 16.4 % (11.7-14.6); RDW-SD 60.3 fL; WBC 7.75 10^3/uL (4.4-10.8)
[2023-10-19 11:16] LABS: ALT 27 U/L (14-59); AST 17 U/L (15-37); Albumin 3.8 g/dL (3.4-5.0); Alkaline Phosphatase 115 U/L (46-116); Anion Gap 4.4 mmol/L (3-11); BUN 22 mg/dL (7-18); Bilirubin, Total 0.45 mg/dL (0.2-1.0); CO2 30.6 mmol/L (21.0-32.0); Calcium 10.3 mg/dL (8.5-10.1); Chloride 103 mmol/L (98-107); Estimated GFR 56.95 (mL/min/1.73m2); Glucose 119 mg/dL (74-106); Magnesium 2.2 mg/dL (1.8-2.4); Potassium 4.6 mmol/L (3.5-5.1); Sodium 138 mmol/L (136-145); Total Protein 7.4 g/dL (6.4-8.2)
== END 2023-10-19 03:08 | disposition home or self-care (01) ==
LOC: LBO 03:08
PROVIDERS: PCP Nurse Practitioner Family; Visit Provider Internal Medicine Medical Oncology
DX: C34.32 Malignant neoplasm of lower lobe, left bronchus or lung (principal)
CPT/HCPCS: 36415; 80053; 83735; 85025

== ENCOUNTER 2023-12-17 11:01 | Outpatient (REF) | payer MEDICARE, SELFPAY | END 2023-12-17 11:02 | disposition home or self-care (01) | LOC: LBN 11:01 | PROVIDERS: PCP Nurse Practitioner Family; Visit Provider Nurse Practitioner Family | DX: N39.0 Urinary tract infection, site not specified (principal); R30.0 Dysuria | CPT/HCPCS: 87077; 87086; 87186 ==

== ENCOUNTER 2024-02-26 00:25 | Outpatient (CLI) | payer MEDICARE, SELFPAY ==
--- NOTE | 2024-02-26 | DI.US_ITS ---
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 COMPARISON: US US BREAST RT COMPLETE from 01/30/2023 FINDINGS: There is no evidence of intraluminal thrombus and there is normal compression and augmentation demons trated within the common femoral veins, femoral veins, and popliteal veins of both lower extremities. In the calves the interrogated veins also exhibit normal compression/ augmentation properties. The greater saphenous veins also appear patent as do the saphenofemoral junctions bilaterally.. Incidentally noted is a Lee cyst in right popliteal fossa which measures 4.4 cm length by 1.1 x 1.7 cm IMPRESSION: 1. No ultrasound evidence of DVT in either lower extremity. 2. Lee cyst noted in the right popliteal fossa with measurements as above. DATA REPOSITORY:
== END 2024-02-26 00:45 ==
LOC: DI 00:26
PROVIDERS: PCP Nurse Practitioner Family; Visit Provider Radiology Radiation Oncology
DX: R60.0 Localized edema (principal)
CPT/HCPCS: 93970

== ENCOUNTER 2024-04-18 03:08 | Outpatient (CLI) | payer MEDICARE, SELFPAY ==
[2024-04-18 12:25] LABS: Abs Immature Grans 0.02 10^3/uL (0.0-0.06); Absolute Basophil Count 0.04 10^3/uL (0.0-0.2); Absolute Lymphocyte Count 0.76 10^3/uL (1.2-3.4); Absolute Monocyte Count 0.63 10^3/uL (0.1-0.8); Absolute Neutrophil Count 5.17 10^3/uL (1.2-6.7); Basophils % 0.6 %; Eosinophils % 1.5 %; HCT 36.8 % (36.0-46.0); HGB 11.7 g/dL (11.2-15.7); Immature Grans % 0.3 %; Lymphocytes % 11.3 %; MCH 30.2 pg (27.0-33.0); MCHC 31.8 % (32.0-36.0); MCV 95 fL (80-95); MPV 9.2 fL (8.0-11.0); Monocytes % 9.4 %; Neutrophils % 76.9 %; Platelet Count 273 10^3/uL (130-400); RBC 3.88 10^6/uL (3.93-5.22); RDW 13.4 % (11.7-14.6); RDW-SD 46.4 fL; WBC 6.72 10^3/uL (4.4-10.8)
[2024-04-18 12:49] LABS: ALT 27 U/L (14-59); AST 17 U/L (15-37); Albumin 3.9 g/dL (3.4-5.0); Alkaline Phosphatase 125 U/L (46-116); Anion Gap 5.6 mmol/L (3-11); BUN 35 mg/dL (7-18); CO2 31.4 mmol/L (21.0-32.0); CREATININE 1.1 mg/dL (0.55-1.02); Calcium 10.3 mg/dL (8.5-10.1); Chloride 105 mmol/L (98-107); Estimated GFR 50.48 (mL/min/1.73m2); Glucose 99 mg/dL (74-106); Potassium 4.1 mmol/L (3.5-5.1); Sodium 142 mmol/L (136-145); Total Protein 7.6 g/dL (6.4-8.2)
--- NOTE | 2024-04-29 11:45 | DI.RAD_ITS ---
Exam(s) XR CHEST 2V PA LATERAL EXAM: XR CHEST 2V PA LATERAL CLINICAL HISTORY: cough, eval for recent pneumonia R05.9. TECHNIQUE: 2D digital imaging was performed. COMPARISON: CT,NM,TMT NM MPI REST STRESS GRP from 07/02/2023 CR XR CHEST 2V PA LATERAL from 04/25/2024 FINDINGS: 2 views: Heart size is normal. The mediastinum is not widened. Previously described left parahilar infiltrate is again noted, exhibiting minimal change. There is a lso now platelike atelectasis in the lingular segment the left lung which was not evident 4 days ago. There are no new right lung findings. No pleural effusions. No pulmonary edema. IMPRESSION: Persistent left parahilar infiltrate. Continued follow-up to resolution is recommended. DATA REPOSITORY: RADIATION DOSE DELIVERED:
== END 2024-04-18 03:09 | disposition home or self-care (01) ==
PROVIDERS: PCP Nurse Practitioner Family; Visit Provider Physician Assistant Medical
DX: Z79.899 Other long term (current) drug therapy (principal); Z79.811 Long term (current) use of aromatase inhibitors; C34.32 Malignant neoplasm of lower lobe, left bronchus or lung
CPT/HCPCS: 36415; 80053; 85025

== ENCOUNTER 2024-04-25 17:34 | Outpatient (CLI) | payer MEDICARE, SELFPAY ==
--- NOTE | 2024-04-25 14:24 | DI.RAD_ITS ---
Exam(s) XR CHEST 2V PA LATERAL EXAM: XR CHEST 2V PA LATERAL CLINICAL HISTORY: eval pna Cough R05.9. TECHNIQUE: 2D digital imaging was performed. COMPARISON: CT,NM,TMT NM MPI REST STRESS GRP from 07/02/2023 US US EXTREMITY VENOUS BI from 02/26/2024 FINDINGS: 2 views: Heart size is normal. The mediastinum is not widened. There is some patchy infiltrate in the mid left lung field seen on the frontal view; less evident on lateral view. This is either in the superior segment of the left lower lobe or left upper lobe. Mil d increased markings noted lower right lung field. No pleural effusions. No pulmonary edema. No pn eumothorax. No fractures evident. IMPRESSION: Left lung parahilar infiltrate as described above. There are no pleural effusions. DATA REPOSITORY: RADIATION DOSE DELIVERED:
== END 2024-04-25 17:54 ==
LOC: DI 17:35
PROVIDERS: PCP Nurse Practitioner Family; Visit Provider Nurse Practitioner Family
DX: R05.9 Cough, unspecified (principal)
CPT/HCPCS: 71046

== ENCOUNTER 2024-04-29 12:12 | Outpatient (CLI) | payer MEDICARE, SELFPAY | END 2024-04-29 12:32 | LOC: DI 12:12 | PROVIDERS: PCP Nurse Practitioner Family; Visit Provider Student in an Organized Health Care Education/Training Program | DX: R91.8 Other nonspecific abnormal finding of lung field (principal); R05.9 Cough, unspecified | CPT/HCPCS: 71046 ==

== ENCOUNTER 2024-07-26 12:39 | Outpatient (CLI) | payer MEDICARE, SELFPAY ==
--- NOTE | 2024-07-26 09:45 | DI.US_ITS ---
Exam(s) US LOWER EXTREMITY VENOUS RT EXAM: US LOWER EXTREMITY VENOUS RT CLINICAL HISTORY: rt leg swelling, medial knee pain, engorged varicose,M79.89 TECHNIQUE: Grayscale, color, and doppler imaging of the deep venous system of the lower extremity w as performed. COMPARISON: US US EXTREMITY VENOUS BI from 02/26/2024 FINDINGS: There is no evidence of intraluminal thrombus and there is normal compression and augmentation demons trated within the common femoral vein, femoral vein, and popliteal vein. In the ipsilateral calf the interrogated veins also exhibit normal compression/ augmentation properti es. The ipsilateral saphenofemoral junction is patent. No evidence of thrombus in the ipsilateral greater saphenous vein Incidentally noted is Lee cyst in the popliteal fossa measuring 3.9 x 1.4 x 2.7 cm. IMPRESSION: 1. No evidence of DVT in the right lower extremity. 2. There is a Lee cyst in the popliteal fossa measuring 3.9 x 1.4 x 2.7 cm DATA REPOSITORY:
--- NOTE | 2024-07-26 09:45 | DI.RAD_ITS ---
Exam(s) XR KNEE RT 3V AP,LAT,GIA EXAM: XR KNEE RT 3V AP,LAT,GIA CLINICAL HISTORY: right hip and knee pain,m79.604. TECHNIQUE: 2D digital imaging was performed of the right knee. Three views obtained. AP, lateral an d PA tunnel views were obtained. COMPARISON: No exams were available for comparison FINDINGS: BONES: No acute fracture is present. No bony destructive lesion is seen. The bones are osteopenic. JOINTS: There is marked narrowing at the patellofemoral joint. Small osteophytes are seen in all 3 j oint compartments. There is a small joint effusion. SOFT TISSUE: Normal. IMPRESSION: Degenerative changes of the right knee particularly the patellofemoral joint. DATA REPOSITORY: RADIATION DOSE DELIVERED:
--- NOTE | 2024-07-26 10:15 | DI.RAD_ITS ---
Exam(s) XR HIP RT COMPLETE AP PELVIS EXAM: XR HIP RT COMPLETE AP PELVIS CLINICAL HISTORY: RT knee and RT hip pain,m79.605. TECHNIQUE: 2D digital imaging was performed of the right hip. Two images were obtained. AP pelvis a nd lateral right hip views were obtained. COMPARISON: No exams were available for comparison FINDINGS: BONES: No acute fracture is present. No bony destructive lesion is seen. JOINTS: No dislocation present. The right hip is well maintained with no significant degenerative qasim nge present. The sacroiliac joints are well maintained as is the symphysis pubis. Note is made of m [id number] degenerative changes in the lower visualized lumbar spine. SOFT TISSUE: Normal. IMPRESSION: 1. Unremarkable radiographs of the right hip. 2. [id number] degenerative changes seen in the lower lumbar spine. DATA REPOSITORY: RADIATION DOSE DELIVERED:
== END 2024-07-26 12:59 ==
LOC: DI 12:40
PROVIDERS: PCP Nurse Practitioner Family; Visit Provider Physician Assistant
DX: M79.604 Pain in right leg (principal); M79.89 Other specified soft tissue disorders; M79.605 Pain in left leg
CPT/HCPCS: 73562; 73502; 93971

== ENCOUNTER 2024-08-01 18:27 | Outpatient (REF) | payer MEDICARE, SELFPAY ==
[2024-08-01 21:51] LABS: Anion Gap 5.3 mmol/L (3-11); BUN 30 mg/dL (7-18); CO2 28.7 mmol/L (21.0-32.0); CREATININE 1.1 mg/dL (0.55-1.02); Calcium 10.3 mg/dL (8.5-10.1); Chloride 102 mmol/L (98-107); Estimated GFR 50.48 (mL/min/1.73m2); Glucose 111 mg/dL (74-106); Magnesium 2.4 mg/dL (1.8-2.4); Potassium 4.8 mmol/L (3.5-5.1); Sodium 136 mmol/L (136-145)
== END 2024-08-01 18:28 | disposition home or self-care (01) ==
LOC: LBN 18:27
PROVIDERS: PCP Nurse Practitioner Family; Visit Provider Nurse Practitioner Family
DX: I10 Essential (primary) hypertension (principal); R25.2 Cramp and spasm
CPT/HCPCS: 80048; 83735

== ENCOUNTER 2024-08-22 01:24 | Outpatient (CLI) | payer MEDICARE, SELFPAY ==
--- NOTE | 2024-08-22 | DI.CT_ITS ---
Exam(s) CT CHEST W EXAM: CT CHEST W CLINICAL HISTORY: Primary malig neoplasm lt lowr lobe of lung C34.32 Survail non-sm cell LC TECHNIQUE: Imaging Protocol: Axial computed tomography images with coronal and sagittal reformatted images were created and reviewed. Computer aided detection (CAD) was utilized. CONTRAST MATERIAL: Intravenous: Omnipaque 350 Contrast volume:70 ml. COMPARISON: CT CT CHEST W CONTRAST from 05/05/2024 FINDINGS: Pulmonary parenchyma: Stable nodular densities and scarring in the left lower lobe. There are now calcifications in this area. Stable focal left lower lobe bronchiectasis. Bronchiectasis with mucous plugging is again noted in the lower lobe. Stable mild scarring at the superior right lower lobe. There are now mild increased densities in subpleural aspect of the anterior right upper lobe at the level of the breast, presumably related to radiation therapy. Stable scattered micro nodules. Mediastinum and Genny: No dominant adenopathy or fluid collection. Pleura: No effusion. No pneumothorax. Heart: The heart is not dilated. Mild coronary artery calcifications are seen. Aorta: Thoracic aorta non-dilated. Mild atherosclerotic changes. Aberrant right subclavian artery. Pulmonary arteries: No gross evidence of emboli. Upper abdomen: No acute findings. Stable liver and renal cysts. Bones: Degenerative changes in the spine. Soft tissues: Skin thickening and some architectural distortion again noted in the right breast. IMPRESSION: Stable appearance of left lower lobe opacities and bilateral lower lobe bronchiectasis with mucous plugging. No new pulmonary nodules or adenopathy. Presumed post radiation changes of the right breast and subpleural region of the right upper lobe. RADIATION DOSE DELIVERED: 214mGy.cm Total DLP DATA REPOSITORY: All CT scans at this facility are submitted to the National Radiology Data Registry (NRDR) Dose Index Registry (DIR) with the [employer] ([employer]). RADIATION OPTIMIZATION: All CT scans at this facility use at least one of these dose optimization techniques: automated exposure control; mA and/or kV adjustment per patient size (includes targeted exams where dose is matched to clinical indication); or iterative reconstruction.
[2024-08-22 14:40] LABS: Abs Immature Grans 0.03 10^3/uL (0.0-0.06); Absolute Basophil Count 0.03 10^3/uL (0.0-0.2); Absolute Eosinophil Count 0.08 10^3/uL (0.0-0.7); Absolute Monocyte Count 0.64 10^3/uL (0.1-0.8); Absolute Neutrophil Count 5.41 10^3/uL (1.2-6.7); Basophils % 0.4 %; Eosinophils % 1.1 %; HCT 34.8 % (36.0-46.0); HGB 11.2 g/dL (11.2-15.7); Immature Grans % 0.4 %; Lymphocytes % 13.9 %; MCH 29.4 pg (27.0-33.0); MCHC 32.2 % (32.0-36.0); MCV 91 fL (80-95); MPV 8.5 fL (8.0-11.0); Monocytes % 8.9 %; Neutrophils % 75.3 %; Platelet Count 242 10^3/uL (130-400); RBC 3.81 10^6/uL (3.93-5.22); RDW 13.2 % (11.7-14.6); RDW-SD 43.6 fL; WBC 7.19 10^3/uL (4.4-10.8)
[2024-08-22 14:59] LABS: ALT 23 U/L (14-59); AST 13 U/L (15-37); Albumin 3.8 g/dL (3.4-5.0); Alkaline Phosphatase 133 U/L (46-116); Anion Gap 6.8 mmol/L (3-11); BUN 30 mg/dL (7-18); Bilirubin, Total 0.4 mg/dL (0.2-1.0); CO2 28.2 mmol/L (21.0-32.0); CREATININE 0.9 mg/dL (0.55-1.02); Calcium 10.1 mg/dL (8.5-10.1); Chloride 100 mmol/L (98-107); Estimated GFR 64.23 (mL/min/1.73m2); Glucose 115 mg/dL (74-106); Potassium 4.4 mmol/L (3.5-5.1); Sodium 135 mmol/L (136-145); Total Protein 7.5 g/dL (6.4-8.2)
[2024-08-22] MEDS: Omnipaque 350 MG/ML 100 ML BTL 70 ML IJ (15:12)
[2024-08-22] MEDS: Normal Saline - Diluent 50 ML VIAL IJ (15:13)
== END 2024-08-22 01:44 ==
LOC: DI 01:25
PROVIDERS: PCP Nurse Practitioner Family; Visit Provider Internal Medicine Medical Oncology
DX: C34.32 Malignant neoplasm of lower lobe, left bronchus or lung (principal)
CPT/HCPCS: 80053; 71260; 85025; J3490

== ENCOUNTER 2024-10-20 21:07 | Outpatient (REF) | payer MEDICARE, SELFPAY | END 2024-10-20 21:08 | disposition home or self-care (01) | LOC: LBN 21:07 | PROVIDERS: PCP Nurse Practitioner Family; Visit Provider Physician Assistant | DX: L02.91 Cutaneous abscess, unspecified (principal) | CPT/HCPCS: 87070; 87205 ==

== ENCOUNTER → 2024-11-10 13:12 | Outpatient (BNVA) | payer MEDICARE, SELFPAY | PROVIDERS: PCP Nurse Practitioner Family; Referring Provider Nurse Practitioner Family; Visit Provider Surgery | DX: L72.3 Sebaceous cyst (principal) | CPT/HCPCS: 99213 ==

== ENCOUNTER → 2024-11-28 10:30 | Outpatient (BNVA) | payer MEDICARE, SELFPAY | PROVIDERS: PCP Nurse Practitioner Family; Referring Provider Nurse Practitioner Family; Visit Provider Surgery | DX: L72.3 Sebaceous cyst (principal) | CPT/HCPCS: 99212 ==

== ENCOUNTER 2024-12-06 02:18 | Outpatient (CLI) | payer MEDICARE, SELFPAY ==
--- NOTE | 2024-12-06 | DI.CT_ITS ---
Exam(s) CT CHEST W EXAM: CT CHEST W CLINICAL HISTORY: CANCER OF L LOWER LOBE OF LUNG, MASS OF LUNG C34.32, R91.8 TECHNIQUE: Imaging Protocol: Axial computed tomography images with coronal and sagittal reformatted images were created and reviewed. Computer aided detection (CAD) was utilized. CONTRAST MATERIAL: Intravenous: Omnipaque 350Contrast volume:70 mL. COMPARISON: CT CT CHEST W CONTRAST from 05/05/[address] CHEST W from 08/22/2024 FINDINGS: Tracheobronchial tree: Patent where visualized. There is a stable area of bronchiectasis and mucoid impaction in the right lower lobe. There is stable mild bronchiectasis in the medial aspect of the right middle lobe. There are stable opacity seen in the superior segment of the left lower lobe. There are no new pulmonary nodules or infiltrates. Pulmonary parenchyma: There are persistent subpleural opacities along the right anterior middle lobe and right upper lobe. There are calcified granuloma present. Mediastinum and Genny: No dominant adenopathy or fluid collection. The esophagus is unremarkable. There is a small hiatal hernia. Thyroid gland: Unremarkable. Pleura: No effusion or pneumothorax. Heart: The heart is not dilated. Mild coronary artery calcification is present. No pericardial effusion. Aorta: Thoracic aorta non-dilated. Atherosclerotic calcification is present. There is no evidence of dissection. Note is again made of an aberrant right subclavian artery. Pulmonary arteries: Due to the timing of the bolus, there is suboptimal opacification of the pulmonary arteries. There is no large central pulmonary embolism. Upper abdomen: Note is made of bilateral simple renal cysts and a left hepatic cyst. No follow-up is recommended. Lymph nodes: Within normal limits. Bones: Within normal limits for the patient's age. Soft tissues: Unremarkable. IMPRESSION: 1. Stable appearance of the lungs compared to the prior examination. 2. No acute pulmonary infiltrates or nodules are seen. 3. Stable opacity in the superior segment of the left lobe of the liver which may represent scarring or residual tumor. RADIATION DOSE DELIVERED: 143.01mGy.cm Total DLP DATA REPOSITORY: All CT scans at this facility are submitted to the National Radiology Data Registry (NRDR) Dose Index Registry (DIR) with the [employer] ([employer]). RADIATION OPTIMIZATION: All CT scans at this facility use at least one of these dose optimization techniques: automated exposure control; mA and/or kV adjustment per patient size (includes targeted exams where dose is matched to clinical indication); or iterative reconstruction.
[2024-12-06 13:22] LABS: Abs Immature Grans 0.03 10^3/uL (0.0-0.06); HCT 35.4 % (36.0-46.0); HGB 11.2 g/dL (11.2-15.7); Immature Grans % 0.4 %; MCH 29.2 pg (27.0-33.0); MCHC 31.6 % (32.0-36.0); MCV 92 fL (80-95); MPV 8.6 fL (8.0-11.0); Platelet Count 243 10^3/uL (130-400); RBC 3.83 10^6/uL (3.93-5.22); RDW 13.5 % (11.7-14.6); RDW-SD 45.6 fL; WBC 7.03 10^3/uL (4.4-10.8)
[2024-12-06 14:11] LABS: ALT 18 U/L (14-59); AST 13 U/L (15-37); Albumin 3.8 g/dL (3.4-5.0); Alkaline Phosphatase 128 U/L (46-116); Anion Gap 7.7 mmol/L (3-11); BUN 29 mg/dL (7-18); Bilirubin, Total 0.5 mg/dL (0.2-1.0); CO2 28.3 mmol/L (21.0-32.0); Calcium 10.1 mg/dL (8.5-10.1); Chloride 103 mmol/L (98-107); Estimated GFR 50.48 (mL/min/1.73m2); Glucose 128 mg/dL (74-106); Potassium 4.1 mmol/L (3.5-5.1); Sodium 139 mmol/L (136-145); Total Protein 7.4 g/dL (6.4-8.2)
[2024-12-06] MEDS: Omnipaque 350 MG/ML 100 ML BTL IJ (14:15)
[2024-12-06] MEDS: Normal Saline - Diluent 50 ML VIAL IJ (14:15)
== END 2024-12-06 02:38 ==
LOC: DI 02:18
PROVIDERS: PCP Nurse Practitioner Family; Visit Provider Nurse Practitioner Adult Health
DX: C34.32 Malignant neoplasm of lower lobe, left bronchus or lung (principal)
CPT/HCPCS: 80053; 71260; 85025; J3490

== ENCOUNTER 2024-12-12 03:50 | Outpatient (CLI) | payer MEDICARE, SELFPAY ==
[2024-12-12 09:54] LABS: Abs Immature Grans 0.04 10^3/uL (0.0-0.06); HCT 34.7 % (36.0-46.0); HGB 11.1 g/dL (11.2-15.7); Immature Grans % 0.5 %; MCH 29.4 pg (27.0-33.0); MCHC 32.0 % (32.0-36.0); MCV 92 fL (80-95); MPV 8.4 fL (8.0-11.0); Platelet Count 242 10^3/uL (130-400); RBC 3.77 10^6/uL (3.93-5.22); RDW 13.4 % (11.7-14.6); RDW-SD 45.2 fL; WBC 7.87 10^3/uL (4.4-10.8)
[2024-12-12 10:09] LABS: ALT 19 U/L (14-59); AST 16 U/L (15-37); Albumin 3.7 g/dL (3.4-5.0); Alkaline Phosphatase 131 U/L (46-116); Anion Gap 7.2 mmol/L (3-11); BUN 28 mg/dL (7-18); Bilirubin, Total 0.5 mg/dL (0.2-1.0); CO2 27.8 mmol/L (21.0-32.0); Calcium 9.9 mg/dL (8.5-10.1); Chloride 103 mmol/L (98-107); Estimated GFR 50.48 (mL/min/1.73m2); Glucose 105 mg/dL (74-106); Potassium 4.6 mmol/L (3.5-5.1); Sodium 138 mmol/L (136-145); Total Protein 7.6 g/dL (6.4-8.2)
== END 2024-12-12 03:51 | disposition home or self-care (01) ==
PROVIDERS: PCP Nurse Practitioner Family; Visit Provider Nurse Practitioner Adult Health
DX: C34.32 Malignant neoplasm of lower lobe, left bronchus or lung (principal); R91.8 Other nonspecific abnormal finding of lung field
CPT/HCPCS: 36415; 80053; 85025

== ENCOUNTER 2024-12-16 14:49 | Outpatient (CLI) | payer MEDICARE, SELFPAY ==
--- NOTE | 2024-12-16 14:08 | DI.RAD_ITS ---
Exam(s) XR ANKLE LT COMPLETE EXAM: XR ANKLE LT COMPLETE CLINICAL HISTORY: eval pathology M25.572 PAIN LT ANKLE AND JOINTS TECHNIQUE: 2D digital imaging was performed. Three views. COMPARISON: No exams were available for comparison FINDINGS: BONES: No acute fracture is present. No bony destructive lesion is seen. Plantar calcaneal spur. Chronic appearing bony density adjacent to the medial malleolus. JOINTS:The ankle mortise is normally aligned. Tibiotalar joint space is not narrowed. SOFT TISSUE: Swelling at the lower leg and ankle. IMPRESSION: No acute abnormality. Heel spur. DATA REPOSITORY: RADIATION DOSE DELIVERED:
== END 2024-12-16 15:09 ==
LOC: DI 14:50
PROVIDERS: PCP Nurse Practitioner Family; Visit Provider Nurse Practitioner Family
DX: M25.572 Pain in left ankle and joints of left foot (principal)
CPT/HCPCS: 73610